=== PATIENT | male | born 1945 | race Caucasian/White ===

== ENCOUNTER 2022-11-18 23:03 | Emergency (ER) | payer OTHER ==
--- OUTSIDE RECORDS SUMMARY | 2022-11-18 23:08 | XMS REPORT | Continuity of Care Document ---
:1945 Author Organization [facility] t Address [address] [place] [address] [place] [id number] Care Team Providers Name Role Phone Asked, No Pcp Primary Care Physician Unavailable Tony_Lary Attending Clinician Unavailable Alirio Ivy MD Attending Clinician IAN ELLIOTT Attending Clinician Unavailable Uli Jimenez Attending Clinician [phone] NITHIN AYALA Attending Clinician Unavailable Tony_Lary Admitting Clinician Unavailable Payers Payer Name Policy Type Policy Number Effective Date Expiration Date S omi MEDICARE B-[place]: [id number] 2012 [employer] 00:00:00 [employer] LIFE [id number] INS[employer]ANCE [employer] (MEDICARE SUPPLEMENT) [employer] (POS) [id number] Problems Condition Condition Condition Status Onset Resolution Last Treating Co mments Source Name Details Category Date Date Treatment Clinician Date Carcinoma 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[facility] of of 8-22 [facility] prostate Prostate 00:00: Urolog y 00 Lower Lower Problem Active [facility] urinary Urinary 6-29 [facility] tract Tract 00:00: Urology symptoms Symptoms 00 due to Due to benign Benign prostatic Prostatic hypertroph Hypertroph y y Anemia Anemia Problem Active [facility] 6-13 [facility] 00:00: Urology 00 Raised Raised Problem Active [facility] prostate Prostate 6-12 [facility] specific Specific 00:00: Urolog y antigen Antigen 00 Hypertensi Hypertensi Problem Active [facility] [place] [facility] ve 3-10 [facility] disorder Disorder 00:00: Urolog y 00 Irregular Irregular Problem Active [facility] heart beat Heart Beat 3-10 [facility] 00:00: Urology 00 Backache Backache Problem Active [place] on 3-10 [facility] 00:00: Urology 00 Radicular Radicular Problem Active [facility] pain Pain 3-10 [facility] 00:00: Urology 00 Allergies, Adverse Reactions, Alerts This patient has no known allergies or adverse reactions. Family History Family Member Diagnosis Comments Start Date Stop Date Source Natural mother Hypertension [facility] Natural father Heart attack [facility] Natural father Heart failure [facility] Natural father Hypertension [facility] Social History Social Habit Start Date Stop Date Quantity Comments Source History of tobacco Current smoker [facility] Cigarettes smoked 2022-04-02 2022-04-[address] current (pack per 00:00:00 00:00:00 Hospita l day) - Reported Tobacco use and 2022-04-02 2022-04-02 Former smokeless [facility] exposure 00:00:00 00:00:00 tobacco user Hospital Alcohol intake 2022-04-02 2022-04-02 Lifetime [facility] 00:00:00 00:00:00 non-drinker Hospital (finding) History of Social 2022-04-02 2022-04-[address] function 00:00:00 00:00:00 Hospital Sex Ass[birth year] At [birth year] [facility] 00:[facility]00 Hospital Smoking Status Start Date Stop Date Source Ex-smoker 2022-04-02 00:00:00 2022-04-02 00:00:00 [facility] Medications Ordered Filled Start Stop Current Ordering Indication Dosage Frequency Signature Comments Components Source Medication Medication Date Date Medication? Clinician (SIG) Name Name ceftriaxone ceftriaxone 2021-06 No ceftriaxon [place] 1 gram 1 gram 2-09 e 1 gram [facility] solution solution 10:01: solution U rology for for 23 for injectionTa injectionTa injectionT ke 1 g by ke 1 g by thalia 1 g by injection injection injection route. route. route. Lupron Lupron 2021-06 No Lupron [place] 45 mg [place] 45 mg 1-16 [place] 45 [facility] (6 Month) (6 Month) 12:23: mg (6 Ur ology intramuscul intramuscul 36 Month) ar syringe ar syringe intramuscu kitInject 1 kitInject 1 lar kit by kit by syringe intramuscul intramuscul kitInject ar route. ar route. 1 kit by intramuscu lar route. aspirin 81 2021-06 Yes Q24H daily. Metho di mg chewable 0-24 st tablet 10:44: Hospita 59 l carvediloL 2021-06 Yes carvedilol M ethodi (COREG) 0-[address] 3.125 MG 10:44: tablet [facility]osp[facility] tablet 59 TAKE 1 l TABLET BY MOUTH TWICE A DAY WITH MEALS gabapentin 2021-06 Yes gabapentin [facility] (NEURONTIN) 0-[address] 100 mg 10:44: capsule Hospita capsule 59 TAKE 1 l CAPSULE BY MOUTH THREE TIMES A DAY lisinopriL- 2021-06 Yes lisinopril [facility] hydrochloro 0-[address] thiazide 10:44: mg-hydroch [facility] [place] (PRINZIDE) 59 lorothiazi l 20-12.5 mg de 12.5 mg per tablet tablet TAKE 1 TABLET BY MOUTH EVERY DAY atorvastati atorvastati No atorvastat [place] n 20 mg n 20 mg 3-10 in 20 mg [facility] tablet TAKE tablet TAKE 00:00: tablet Urology 1 TABLET BY 1 TABLET BY 00 TAKE 1 MOUTH EVERY MOUTH EVERY TABLET BY DAY DAY MOUTH EVERY DAY atorvastati atorvastati No atorvastat [place] n 20 mg n 20 mg 3-10 in 20 mg [facility] tablet TAKE tablet TAKE 00:00: tablet Urology 1 TABLET BY 1 TABLET BY 00 TAKE 1 MOUTH EVERY MOUTH EVERY TABLET BY DAY DAY MOUTH EVERY DAY atorvastati Yes 20mg 1 tablet [facility]odi n (LIPITOR) 3-10 ([address] 20 mg 00:00: total). Hospita tablet 00 l atorvastati atorvastati No atorvastat [facility] n 20 mg n 20 mg in 20 mg [facility] tablet TAKE tablet TAKE tablet Urology 1 TABLET BY 1 TABLET BY TAKE 1 MOUTH EVERY MOUTH EVERY TABLET BY DAY DAY MOUTH EVERY DAY Baby Baby No 1 Q1D Baby [facility] Aspirin 81 Aspirin 81 Aspirin 81 [facility] mg chewable mg chewable mg U rology tablet Chew tablet Chew chewable 1 tablet 1 tablet tablet every day every day Chew 1 by oral by oral tablet route. route. every day by oral route. carvedilol carvedilol No carvedilol [facility] 3.125 mg 3.125 mg 3.125 mg Met ro tablet TAKE tablet TAKE tablet Urology 1 TABLET BY 1 TABLET BY TAKE 1 MOUTH TWICE MOUTH TWICE TABLET BY A DAY WITH A DAY WITH MOUTH MEALS MEALS TWICE A DAY WITH MEALS ciprofloxac ciprofloxac No ciprofloxa [facility] in 500 mg in 500 mg adam 500 mg [facility] tablet TAKE tablet TAKE tablet Urology 1 TABLET BY 1 TABLET BY TAKE 1 MOUTH EVERY MOUTH EVERY TABLET BY 12 HOURS 12 HOURS MOUTH FOR 7 DAYS FOR 7 DAYS EVERY 12 HOURS FOR 7 DAYS gabapentin gabapentin No gabapentin [facility] 100 mg 100 mg 100 mg [facility] capsule capsule capsule Urolog y Take 1 Take 1 Take 1 capsule 3 capsule 3 capsule 3 times a day times a day times a by oral by oral day by route. route. oral route. lisinopril lisinopril No lisinopril [facility] 20 20 20 [facility] mg-hydrochl mg-hydrochl mg-hydroch Urology orothiazide orothiazide lorothiazi 12.5 mg 12.5 mg de 12.5 mg tablet tablet tablet sulfamethox sulfamethox No sulfametho [facility] azole 800 azole 800 xazole 800 [facility] mg-trimetho mg-trimetho mg-trimeth Urology prim 160 mg prim 160 mg oprim 160 tablet Take tablet Take mg tablet 1 tablet 1 tablet Take 1 every 12 every 12 tablet hours by hours by every 12 oral route oral route hours by for 3 days. for 3 days. oral route for 3 days. atorvastati atorvastati No atorvastat [facility] n 20 mg n 20 mg in 20 mg [facility] tablet TAKE tablet TAKE tablet Urology 1 TABLET BY 1 TABLET BY TAKE 1 MOUTH EVERY MOUTH EVERY TABLET BY DAY DAY MOUTH EVERY DAY Baby Baby No 1 Q1D Baby [facility] Aspirin 81 Aspirin 81 Aspirin 81 [facility] mg chewable mg chewable mg U rology tablet Chew tablet Chew chewable 1 tablet 1 tablet tablet every day every day Chew 1 by oral by oral tablet route. route. every day by oral route. carvedilol carvedilol No carvedilol [facility] 3.125 mg 3.125 mg 3.125 mg Met ro tablet TAKE tablet TAKE tablet Urology 1 TABLET BY 1 TABLET BY TAKE 1 MOUTH TWICE MOUTH TWICE TABLET BY A DAY WITH A DAY WITH MOUTH MEALS MEALS TWICE A DAY WITH MEALS ciprofloxac ciprofloxac No ciprofloxa [facility] in 500 mg in 500 mg adam 500 mg [facility] tablet TAKE tablet TAKE tablet Urology 1 TABLET BY 1 TABLET BY TAKE 1 MOUTH EVERY MOUTH EVERY TABLET BY 12 HOURS 12 HOURS MOUTH FOR 7 DAYS FOR 7 DAYS EVERY 12 HOURS FOR 7 DAYS gabapentin gabapentin No gabapentin [facility] 100 mg 100 mg 100 mg [facility] capsule capsule capsule Urolog y TAKE 1 TAKE 1 TAKE 1 CAPSULE BY CAPSULE BY CAPSULE BY MOUTH THREE MOUTH THREE MOUTH TIMES A DAY TIMES A DAY THREE TIMES A DAY lisinopril lisinopril No lisinopril [facility] 20 20 20 [facility] mg-hydrochl mg-hydrochl mg-hydroch Urology orothiazide orothiazide lorothiazi 12.5 mg 12.5 mg de 12.5 mg tablet TAKE tablet TAKE tablet 1 TABLET BY 1 TABLET BY TAKE 1 MOUTH EVERY MOUTH EVERY TABLET BY DAY DAY MOUTH EVERY DAY Lupron Lupron No 1kit(s) Lupron [place] 45 mg [place] 45 mg [place] 45 [facility] (6 Month) (6 Month) mg (6 Urol ogy intramuscul intramuscul Month) ar syringe ar syringe intramuscu kit Inject kit Inject lar 1 kit by 1 kit by syringe intramuscul intramuscul kit Inject ar route. ar route. 1 kit by intramuscu lar route. sulfamethox sulfamethox No sulfametho [facility] azole 800 azole 800 xazole 800 [facility] mg-trimetho mg-trimetho mg-trimeth Urology prim 160 mg prim 160 mg oprim 160 tablet TAKE tablet TAKE mg tablet 1 TABLET BY 1 TABLET BY TAKE 1 MOUTH EVERY MOUTH EVERY TABLET BY 12 HOURS 12 HOURS MOUTH FOR 3 DAYS FOR 3 DAYS EVERY 12 HOURS FOR 3 DAYS atorvastati atorvastati No atorvastat [facility] n 20 mg n 20 mg in 20 mg [facility] tablet TAKE tablet TAKE tablet Urology 1 TABLET BY 1 TABLET BY TAKE 1 MOUTH EVERY MOUTH EVERY TABLET BY DAY DAY MOUTH EVERY DAY Baby Baby No 1 Q1D Baby [facility] Aspirin 81 Aspirin 81 Aspirin 81 [facility] mg chewable mg chewable mg U rology tablet Chew tablet Chew chewable 1 tablet 1 tablet tablet every day every day Chew 1 by oral by oral tablet route. route. every day by oral route. carvedilol carvedilol No carvedilol [facility] 3.125 mg 3.125 mg 3.125 mg [facility] ro tablet TAKE tablet TAKE tablet Urology 1 TABLET BY 1 TABLET BY TAKE 1 MOUTH TWICE MOUTH TWICE TABLET BY A DAY WITH A DAY WITH MOUTH MEALS MEALS TWICE A DAY WITH MEALS Cipro 500 Cipro 500 No 1 BID Cipro 500 [facility] mg tablet mg tablet mg tablet [facility] Take 1 Take 1 Take 1 Urology tablet tablet tablet twice a day twice a day twice a by oral by oral day by route for 3 route for 3 oral route days. days. for 3 days. gabapentin gabapentin No gabapentin [facility] 100 mg 100 mg 100 mg [facility] capsule capsule capsule Urolog y TAKE 1 TAKE 1 TAKE 1 CAPSULE BY CAPSULE BY CAPSULE BY MOUTH THREE MOUTH THREE MOUTH TIMES A DAY TIMES A DAY THREE TIMES A DAY lisinopril lisinopril No lisinopril [facility] 20 20 20 [facility] mg-hydrochl mg-hydrochl mg-hydroch Urology orothiazide orothiazide lorothiazi 12.5 mg 12.5 mg de 12.5 mg tablet TAKE tablet TAKE tablet 1 TABLET BY 1 TABLET BY TAKE 1 MOUTH EVERY MOUTH EVERY TABLET BY DAY DAY MOUTH EVERY DAY Lupron Lupron No 1kit(s) Lupron [place] 45 mg [place] 45 mg [place] 45 [facility] (6 Month) (6 Month) mg (6 Urol ogy intramuscul intramuscul Month) ar syringe ar syringe intramuscu kit Inject kit Inject lar 1 kit by 1 kit by syringe intramuscul intramuscul kit Inject ar route. ar route. 1 kit by intramuscu lar route. sulfamethox sulfamethox No sulfametho [facility] azole 800 azole 800 xazole 800 [facility] mg-trimetho mg-trimetho mg-trimeth Urology prim 160 mg prim 160 mg oprim 160 tablet TAKE tablet TAKE mg tablet 1 TABLET BY 1 TABLET BY TAKE 1 MOUTH EVERY MOUTH EVERY TABLET BY 12 HOURS 12 HOURS MOUTH FOR 3 DAYS FOR 3 DAYS EVERY 12 HOURS FOR 3 DAYS atorvastati atorvastati No atorvastat [facility] n 20 mg n 20 mg in 20 mg [facility] tablet TAKE tablet TAKE tablet Urology 1 TABLET BY 1 TABLET BY TAKE 1 MOUTH EVERY MOUTH EVERY TABLET BY DAY DAY MOUTH EVERY DAY Baby Baby No 1 Q1D Baby [facility] Aspirin 81 Aspirin 81 Aspirin 81 [facility] mg chewable mg chewable mg U rology tablet Chew tablet Chew chewable 1 tablet 1 tablet tablet every day every day Chew 1 by oral by oral tablet route. route. every day by oral route. carvedilol carvedilol No carvedilol [facility] 3.125 mg 3.125 mg 3.125 mg [facility] tablet TAKE tablet TAKE tablet Urology 1 TABLET BY 1 TABLET BY TAKE 1 MOUTH TWICE MOUTH TWICE TABLET BY A DAY WITH A DAY WITH MOUTH MEALS MEALS TWICE A DAY WITH MEALS ceftriaxone ceftriaxone No 1g ceftriaxon [facility] 1 gram 1 gram e 1 gram [facility] solution solution solution Uro logy for for for injection injection injection Take 1 g by Take 1 g by Take 1 g injection injection by route. route. injection INJECTION INJECTION route. GIVEN PRIOR GIVEN PRIOR INJECTION TO TO GIVEN PROCEDURE PROCEDURE PRIOR TO STARTNG STARTNG PROCEDURE STARTNG ciprofloxac ciprofloxac No ciprofloxa [facility] in 500 mg in 500 mg adam 500 mg [facility] tablet TAKE tablet TAKE tablet Urology 1 TABLET BY 1 TABLET BY TAKE 1 MOUTH TWICE MOUTH TWICE TABLET BY A DAY FOR 3 A DAY FOR 3 MOUTH DAYS DAYS TWICE A DAY FOR 3 DAYS diazepam 5 diazepam 5 No diazepam 5 [facility] mg tablet mg tablet mg tablet [facility] TAKE 3 TAKE 3 TAKE 3 Urology TABLETS TABLETS TABLETS NEEDED BY NEEDED BY NEEDED BY ORAL ROUTE. ORAL ROUTE. ORAL ROUTE. gabapentin gabapentin No gabapentin [facility] 100 mg 100 mg 100 mg [facility] capsule capsule capsule Urolog y TAKE 1 TAKE 1 TAKE 1 CAPSULE BY CAPSULE BY CAPSULE BY MOUTH THREE MOUTH THREE MOUTH TIMES A DAY TIMES A DAY THREE TIMES A DAY lisinopril lisinopril No lisinopril [facility] 20 20 20 [facility] mg-hydrochl mg-hydrochl mg-hydroch Urology orothiazide orothiazide lorothiazi 12.5 mg 12.5 mg de 12.5 mg tablet TAKE tablet TAKE tablet 1 TABLET BY 1 TABLET BY TAKE 1 MOUTH EVERY MOUTH EVERY TABLET BY DAY DAY MOUTH EVERY DAY Lupron Lupron No 1kit(s) Lupron [place] 45 mg [place] 45 mg [place] 45 [facility] (6 Month) (6 Month) mg (6 Urol ogy intramuscul intramuscul Month) ar syringe ar syringe intramuscu kit Inject kit Inject lar 1 kit by 1 kit by syringe intramuscul intramuscul kit Inject ar route. ar route. 1 kit by intramuscu lar route. sulfamethox sulfamethox No sulfametho [facility] azole 800 azole 800 xazole 800 [facility] mg-trimetho mg-trimetho mg-trimeth Urology prim 160 mg prim 160 mg oprim 160 tablet TAKE tablet TAKE mg tablet 1 TABLET BY 1 TABLET BY TAKE 1 MOUTH EVERY MOUTH EVERY TABLET BY 12 HOURS 12 HOURS MOUTH FOR 3 DAYS FOR 3 DAYS EVERY 12 HOURS FOR 3 DAYS atorvastati atorvastati No atorvastat [facility] n 20 mg n 20 mg in 20 mg [facility] tablet TAKE tablet TAKE tablet Urology 1 TABLET BY 1 TABLET BY TAKE 1 MOUTH EVERY MOUTH EVERY TABLET BY DAY DAY MOUTH EVERY DAY Baby Baby No 1 Q1D Baby [facility] Aspirin 81 Aspirin 81 Aspirin 81 [facility] mg chewable mg chewable mg U rology tablet Chew tablet Chew chewable 1 tablet 1 tablet tablet every day every day Chew 1 by oral by oral tablet route. route. every day by oral route. carvedilol carvedilol No carvedilol [facility] 3.125 mg 3.125 mg 3.125 mg [facility] ro tablet TAKE tablet TAKE tablet Urology 1 TABLET BY 1 TABLET BY TAKE 1 MOUTH TWICE MOUTH TWICE TABLET BY A DAY WITH A DAY WITH MOUTH MEALS MEALS TWICE A DAY WITH MEALS gabapentin gabapentin No gabapentin [facility] 100 mg 100 mg 100 mg [facility] capsule capsule capsule Urolog y TAKE 1 TAKE 1 TAKE 1 CAPSULE BY CAPSULE BY CAPSULE BY MOUTH THREE MOUTH THREE MOUTH TIMES A DAY TIMES A DAY THREE TIMES A DAY lisinopril lisinopril No lisinopril [facility] 20 20 20 [facility] mg-hydrochl mg-hydrochl mg-hydroch Urology orothiazide orothiazide lorothiazi 12.5 mg 12.5 mg de 12.5 mg tablet TAKE tablet TAKE tablet 1 TABLET BY 1 TABLET BY TAKE 1 MOUTH EVERY MOUTH EVERY TABLET BY DAY DAY MOUTH EVERY DAY Lupron Lupron No 1kit(s) Lupron [place] 45 mg [place] 45 mg [place] 45 [facility] (6 Month) (6 Month) mg (6 Urol ogy intramuscul intramuscul Month) ar syringe ar syringe intramuscu kit Inject kit Inject lar 1 kit by 1 kit by syringe intramuscul intramuscul kit Inject ar route. ar route. 1 kit by intramuscu lar route. tamsulosin tamsulosin No 1capsul Q1D tamsulosin [facility] 0.4 mg 0.4 mg e(s) 0.4 mg [facility] capsule capsule capsule Urolog y Take 1 Take 1 Take 1 capsule capsule capsule every day every day every day by oral by oral by oral route. Take route. Take route. one capsule one capsule Take one 30 minutes 30 minutes capsule 30 after after minutes dinner, dinner, after each each dinner, night.Stop night.Stop each taking taking night.Stop medication medication taking and notify and notify medication MD and notify immediately immediately MD if you if you immediatel experience experience y if you any any experience new/worseni new/worseni any ng issues, ng issues, new/worsen specificall specificall ing y y issues, headaches, headaches, specifical dizziness, dizziness, ly lightheaded lightheaded headaches, ness, ness, dizziness, visual visual lightheade changes, changes, dness, nausea, or nausea, or visual unsteadines unsteadines changes, s. -- S. s. -- S. nausea, or MD Krista Velasco MD unsteadine ss. -- S. MD Krista atorvastati atorvastati No atorvastat [facility] n 20 mg n 20 mg in 20 mg [facility] tablet TAKE tablet TAKE tablet Urology 1 TABLET BY 1 TABLET BY TAKE 1 MOUTH EVERY MOUTH EVERY TABLET BY DAY DAY MOUTH EVERY DAY Baby Baby No 1 Q1D Baby [facility] Aspirin 81 Aspirin 81 Aspirin 81 [facility] mg chewable mg chewable mg U rology tablet Chew tablet Chew chewable 1 tablet 1 tablet tablet every day every day Chew 1 by oral by oral tablet route. route. every day by oral route. carvedilol carvedilol No carvedilol [facility] 3.125 mg 3.125 mg 3.125 mg [facility] ro tablet TAKE tablet TAKE tablet Urology 1 TABLET BY 1 TABLET BY TAKE 1 MOUTH TWICE MOUTH TWICE TABLET BY A DAY WITH A DAY WITH MOUTH MEALS MEALS TWICE A DAY WITH MEALS gabapentin gabapentin No gabapentin [facility] 100 mg 100 mg 100 mg [facility] capsule capsule capsule Urolog y TAKE 1 TAKE 1 TAKE 1 CAPSULE BY CAPSULE BY CAPSULE BY MOUTH THREE MOUTH THREE MOUTH TIMES A DAY TIMES A DAY THREE TIMES A DAY lisinopril lisinopril No lisinopril [facility] 20 20 20 [facility] mg-hydrochl mg-hydrochl mg-hydroch Urology orothiazide orothiazide [place]iazi 12.5 mg 12.5 mg de 12.5 mg tablet TAKE tablet TAKE tablet 1 TABLET BY 1 TABLET BY TAKE 1 MOUTH EVERY MOUTH EVERY TABLET BY DAY DAY MOUTH EVERY DAY Lupron Lupron No 1kit(s) Lupron [place] 45 mg [place] 45 mg [place] 45 [facility] (6 Month) (6 Month) mg (6 Urol ogy intramuscul intramuscul Month) ar syringe ar syringe intramuscu kit Inject kit Inject lar 1 kit by 1 kit by syringe intramuscul intramuscul kit Inject ar route. ar route. 1 kit by intramuscu lar route. tamsulosin tamsulosin No 1capsul Q1D tamsulosin [facility] 0.4 mg 0.4 mg e(s) 0.4 mg [facility] capsule capsule capsule Urolog y Take 1 Take 1 Take 1 capsule capsule capsule every day every day every day by oral by oral by oral route. Take route. Take route. one capsule one capsule Take one 30 minutes 30 minutes capsule 30 after after minutes dinner, dinner, after each each dinner, night.Stop night.Stop each taking taking night.Stop medication medication taking and notify and notify medication MD and notify immediately immediately MD if you if you immediatel experience experience y if you any any experience new/worseni new/worseni any ng issues, ng issues, new/worsen specificall specificall ing y y issues, headaches, headaches, specifical dizziness, dizziness, ly lightheaded lightheaded headaches, ness, ness, dizziness, visual visual lightheade changes, changes, dness, nausea, or nausea, or visual unsteadines unsteadines changes, s. -- S. s. -- S. nausea, or MD Krista Velasco MD unsteadine ss. -- S. MD Krista atorvastati atorvastati No atorvastat [facility] n 20 mg n 20 mg in 20 mg [facility] tablet TAKE tablet TAKE tablet Urology 1 TABLET BY 1 TABLET BY TAKE 1 MOUTH EVERY MOUTH EVERY TABLET BY DAY DAY MOUTH EVERY DAY Baby Baby No 1 Q1D Baby [facility] Aspirin 81 Aspirin 81 Aspirin 81 [facility] mg chewable mg chewable mg U rology tablet Chew tablet Chew chewable 1 tablet 1 tablet tablet every day every day Chew 1 by oral by oral tablet route. route. every day by oral route. carvedilol carvedilol No carvedilol [facility] 3.125 mg 3.125 mg 3.125 mg [facility] tablet TAKE tablet TAKE tablet Urology 1 TABLET BY 1 TABLET BY TAKE 1 MOUTH TWICE MOUTH TWICE TABLET BY A DAY WITH A DAY WITH MOUTH MEALS MEALS TWICE A DAY WITH MEALS gabapentin gabapentin No gabapentin [facility] 100 mg 100 mg 100 mg [facility] capsule capsule capsule Urolog y TAKE 1 TAKE 1 TAKE 1 CAPSULE BY CAPSULE BY CAPSULE BY MOUTH THREE MOUTH THREE MOUTH TIMES A DAY TIMES A DAY THREE TIMES A DAY lisinopril lisinopril No lisinopril [facility] 20 20 20 [facility] mg-hydrochl mg-hydrochl mg-hydroch Urology orothiazide orothiazide lorothiazi 12.5 mg 12.5 mg de 12.5 mg tablet TAKE tablet TAKE tablet 1 TABLET BY 1 TABLET BY TAKE 1 MOUTH EVERY MOUTH EVERY TABLET BY DAY DAY MOUTH EVERY DAY Lupron Lupron No 1kit(s) Lupron [place] 45 mg [place] 45 mg [place] 45 [facility] (6 Month) (6 Month) mg (6 Urol ogy intramuscul intramuscul Month) ar syringe ar syringe intramuscu kit Inject kit Inject lar 1 kit by 1 kit by syringe intramuscul intramuscul kit Inject ar route. ar route. 1 kit by intramuscu lar route. tamsulosin tamsulosin No 1capsul Q1D tamsulosin [facility] 0.4 mg 0.4 mg e(s) 0.4 mg [facility] capsule capsule capsule Urolog y Take 1 Take 1 Take 1 capsule capsule capsule every day every day every day by oral by oral by oral route. Take route. Take route. one capsule one capsule Take one 30 minutes 30 minutes capsule 30 after after minutes dinner, dinner, after each each dinner, night.Stop night.Stop each taking taking night.Stop medication medication taking and notify and notify medication MD and notify immediately immediately MD if you if you immediatel experience experience y if you any any experience new/worseni new/worseni any ng issues, ng issues, new/worsen specificall specificall ing y y issues, headaches, headaches, specifical dizziness, dizziness, ly lightheaded lightheaded headaches, ness, ness, dizziness, visual visual lightheade changes, changes, dness, nausea, or nausea, or visual unsteadines unsteadines changes, s. -- S. s. -- S. nausea, or MD Krista Velasco MD unsteadine ss. -- S. MD Krista atorvastati atorvastati No atorvastat [facility] n 20 mg n 20 mg in 20 mg [facility] tablet TAKE tablet TAKE tablet Urology 1 TABLET BY 1 TABLET BY TAKE 1 MOUTH EVERY MOUTH EVERY TABLET BY DAY DAY MOUTH EVERY DAY Baby Baby No 1 Q1D [facility] Aspirin 81 Aspirin 81 Aspirin 81 [facility] mg chewable mg chewable mg U rology tablet Chew tablet Chew chewable 1 tablet 1 tablet tablet every day every day Chew 1 by oral by oral tablet route. route. every day by oral route. carvedilol carvedilol No carvedilol [facility] 3.125 mg 3.125 mg 3.125 mg [facility] tablet TAKE tablet TAKE tablet Urology 1 TABLET BY 1 TABLET BY TAKE 1 MOUTH TWICE MOUTH TWICE TABLET BY A DAY WITH A DAY WITH MOUTH MEALS MEALS TWICE A DAY WITH MEALS gabapentin gabapentin No gabapentin [facility] 100 mg 100 mg 100 mg [facility] capsule capsule capsule Urolog y TAKE 1 TAKE 1 TAKE 1 CAPSULE BY CAPSULE BY CAPSULE BY MOUTH THREE MOUTH THREE MOUTH TIMES A DAY TIMES A DAY THREE TIMES A DAY lisinopril lisinopril No lisinopril [facility] 20 20 20 [facility] mg-hydrochl mg-hydrochl mg-hydroch Urology orothiazide orothiazide l[place]iazi 12.5 mg 12.5 mg de 12.5 mg tablet TAKE tablet TAKE tablet 1 TABLET BY 1 TABLET BY TAKE 1 MOUTH EVERY MOUTH EVERY TABLET BY DAY DAY MOUTH EVERY DAY Lupron Lupron No 1kit(s) Lupron [place] 45 mg [place] 45 mg [place] 45 [facility] (6 Month) (6 Month) mg (6 Urol ogy intramuscul intramuscul Month) ar syringe ar syringe intramuscu kit Inject kit Inject lar 1 kit by 1 kit by syringe intramuscul intramuscul kit Inject ar route. ar route. 1 kit by intramuscu lar route. tamsulosin tamsulosin No 1capsul Q1D tamsulosin [facility] 0.4 mg 0.4 mg e(s) 0.4 mg [facility] capsule capsule capsule Urolog y Take 1 Take 1 Take 1 capsule capsule capsule every day every day every day by oral by oral by oral route. Take route. Take route. one capsule one capsule Take one 30 minutes 30 minutes capsule 30 after after minutes dinner, dinner, after each each dinner, night.Stop night.Stop each taking taking night.Stop medication medication taking and notify and notify medication MD MD and notify immediately immediately MD if you if you immediatel experience experience y if you any any experience new/worseni new/worseni any ng issues, ng issues, new/worsen specificall specificall ing y y issues, headaches, headaches, specifical dizziness, dizziness, ly lightheaded lightheaded headaches, ness, ness, dizziness, visual visual lightheade changes, changes, dness, nausea, or nausea, or visual unsteadines unsteadines changes, s. -- S. s. -- S. nausea, or MD Krista Velasco MD unsteadine ss. -- S. MD Krista atorvastati atorvastati No atorvastat [facility] n 20 mg n 20 mg in 20 mg [facility] tablet TAKE tablet TAKE tablet U[facility] 1 TABLET BY 1 TABLET BY TAKE 1 MOUTH EVERY MOUTH EVERY TABLET BY DAY DAY MOUTH EVERY DAY Baby Baby No 1 Q1D Baby [facility] Aspirin 81 Aspirin 81 Aspirin 81 [facility] mg chewable mg chewable mg U rology tablet Chew tablet Chew chewable 1 tablet 1 tablet tablet every day every day Chew 1 by oral by oral tablet route. route. every day by oral route. carvedilol carvedilol No carvedilol [facility] 3.125 mg 3.125 mg 3.125 mg Met ro tablet TAKE tablet TAKE tablet Urology 1 TABLET BY 1 TABLET BY TAKE 1 MOUTH TWICE MOUTH TWICE TABLET BY A DAY WITH A DAY WITH MOUTH MEALS MEALS TWICE A DAY WITH MEALS gabapentin gabapentin No gabapentin [facility] 100 mg 100 mg 100 mg [facility] capsule capsule capsule Urolog y TAKE 1 TAKE 1 TAKE 1 CAPSULE BY CAPSULE BY CAPSULE BY MOUTH THREE MOUTH THREE MOUTH TIMES A DAY TIMES A DAY THREE TIMES A DAY lisinopril lisinopril No lisinopril [facility] 20 20 20 [facility] mg-hydrochl mg-hydrochl mg-hydroch Urology orothiazide orothiazide [facility] 12.5 mg 12.5 mg de 12.5 mg tablet TAKE tablet TAKE tablet 1 TABLET BY 1 TABLET BY TAKE 1 MOUTH EVERY MOUTH EVERY TABLET BY DAY DAY MOUTH EVERY DAY Lupron Lupron No 1kit(s) Lupron [place] 45 mg [facility] 45 mg [facility] 45 [facility] (6 Month) (6 Month) mg (6 Urol ogy intramuscul intramuscul Month) ar syringe ar syringe intramuscu kit Inject kit Inject lar 1 kit by 1 kit by syringe intramuscul intramuscul kit Inject ar route. ar route. 1 kit by intramuscu lar route. tamsulosin tamsulosin No 1capsul Q1D tamsulosin [facility] 0.4 mg 0.4 mg e(s) 0.4 mg [facility] capsule capsule capsule Urolog y Take 1 Take 1 Take 1 capsule capsule capsule every day every day every day by oral by oral by oral route. Take route. Take route. one capsule one capsule Take one 30 minutes 30 minutes capsule 30 after after minutes dinner, dinner, after each each dinner, night.Stop night.Stop each taking taking night.Stop medication medication taking and notify and notify medication MD and notify immediately immediately MD if you if you immediatel experience experience y if you any any experience new/worseni new/worseni any ng issues, ng issues, new/worsen specificall specificall ing y y issues, headaches, headaches, specifical dizziness, dizziness, ly lightheaded lightheaded headaches, ness, ness, dizziness, visual visual lightheade changes, changes, dness, nausea, or nausea, or visual unsteadines unsteadines changes, s. -- S. s. -- S. nausea, or MD Krista Velasco MD unsteadine ss. -- S. MD Krista atorvastati atorvastati No atorvastat [facility] n 20 mg n 20 mg in 20 mg [facility] tablet TAKE tablet TAKE tablet Urology 1 TABLET BY 1 TABLET BY TAKE 1 MOUTH EVERY MOUTH EVERY TABLET BY DAY DAY MOUTH EVERY DAY Baby Baby No 1 Q1D Baby [facility] Aspirin 81 Aspirin 81 Aspirin 81 [facility] mg chewable mg chewable mg U rology tablet Chew tablet Chew chewable 1 tablet 1 tablet tablet every day every day Chew 1 by oral by oral tablet route. route. every day by oral route. carvedilol carvedilol No carvedilol [facility] 3.125 mg 3.125 mg 3.125 mg Met ro tablet TAKE tablet TAKE tablet Urology 1 TABLET BY 1 TABLET BY TAKE 1 MOUTH TWICE MOUTH TWICE TABLET BY A DAY WITH A DAY WITH MOUTH MEALS MEALS TWICE A DAY WITH MEALS gabapentin gabapentin No gabapentin [facility] 100 mg 100 mg 100 mg [facility] capsule capsule capsule Urolog y TAKE 1 TAKE 1 TAKE 1 CAPSULE BY CAPSULE BY CAPSULE BY MOUTH THREE MOUTH THREE MOUTH TIMES A DAY TIMES A DAY THREE TIMES A DAY lisinopril lisinopril No lisinopril [facility] 20 20 20 [facility] mg-hydrochl mg-hydrochl mg-hydroch Urology orothiazide orothiazide [facility] 12.5 mg 12.5 mg de 12.5 mg tablet TAKE tablet TAKE tablet 1 TABLET BY 1 TABLET BY TAKE 1 MOUTH EVERY MOUTH EVERY TABLET BY DAY DAY MOUTH EVERY DAY Lupron Lupron No 1kit(s) Lupron [place] 45 mg [place] 45 mg [place] 45 [facility] (6 Month) (6 Month) mg (6 Urol ogy intramuscul intramuscul Month) ar syringe ar syringe intramuscu kit Inject kit Inject lar 1 kit by 1 kit by syringe intramuscul intramuscul kit Inject ar route. ar route. 1 kit by intramuscu lar route. tamsulosin tamsulosin No 1capsul Q1D tamsulosin [facility] 0.4 mg 0.4 mg e(s) 0.4 mg [facility] capsule capsule capsule Urolog y Take 1 Take 1 Take 1 capsule capsule capsule every day every day every day by oral by oral by oral route. Take route. Take route. one capsule one capsule Take one 30 minutes 30 minutes capsule 30 after after minutes dinner, dinner, after each each dinner, night.Stop night.Stop each taking taking night.Stop medication medication taking and notify and notify medication MD and notify immediately immediately MD if you if you immediatel experience experience y if you any any experience new/worseni new/worseni any ng issues, ng issues, new/worsen specificall specificall ing y y issues, headaches, headaches, specifical dizziness, dizziness, ly lightheaded lightheaded headaches, ness, ness, dizziness, visual visual lightheade changes, changes, dness, nausea, or nausea, or visual unsteadines unsteadines changes, s. -- S. s. -- S. nausea, or MD Krista Velasco MD unsteadine ss. -- S. MD Krista atorvastati atorvastati No atorvastat [facility] n 20 mg n 20 mg in 20 mg [facility] tablet TAKE tablet TAKE tablet Urology 1 TABLET BY 1 TABLET BY TAKE 1 MOUTH EVERY MOUTH EVERY TABLET BY DAY DAY MOUTH EVERY DAY Baby Baby No 1 Q1D Baby [facility] Aspirin 81 Aspirin 81 Aspirin 81 [facility] mg chewable mg chewable mg U rology tablet Chew tablet Chew chewable 1 tablet 1 tablet tablet every day every day Chew 1 by oral by oral tablet route. route. every day by oral route. carvedilol carvedilol No carvedilol [facility] 3.125 mg 3.125 mg 3.125 mg Met ro tablet TAKE tablet TAKE tablet Urology 1 TABLET BY 1 TABLET BY TAKE 1 MOUTH TWICE MOUTH TWICE TABLET BY A DAY WITH A DAY WITH MOUTH MEALS MEALS TWICE A DAY WITH MEALS eplerenone eplerenone No eplerenone [facility] 25 mg 25 mg 25 mg [facility] tablet tablet tablet Urology gabapentin gabapentin No gabapentin [facility] 100 mg 100 mg 100 mg [facility] capsule capsule capsule Urolog y TAKE 1 TAKE 1 TAKE 1 CAPSULE BY CAPSULE BY CAPSULE BY MOUTH THREE MOUTH THREE MOUTH TIMES A DAY TIMES A DAY THREE TIMES A DAY lisinopril lisinopril No lisinopril [facility] 20 20 20 [facility] mg-hydrochl mg-hydrochl mg-hydroch Urology orothiazide orothiazide [facility] 12.5 mg 12.5 mg de 12.5 mg tablet TAKE tablet TAKE tablet 1 TABLET BY 1 TABLET BY TAKE 1 MOUTH EVERY MOUTH EVERY TABLET BY DAY DAY MOUTH EVERY DAY Lupron Lupron No 1kit(s) Lupron [place] 45 mg [place] 45 mg [place] 45 [facility] (6 Month) (6 Month) mg (6 Urol ogy intramuscul intramuscul Month) ar syringe ar syringe intramuscu kit Inject kit Inject lar 1 kit by 1 kit by syringe intramuscul intramuscul kit Inject ar route. ar route. 1 kit by intramuscu lar route. tamsulosin tamsulosin No 1capsul Q1D tamsulosin [facility] 0.4 mg 0.4 mg e(s) 0.4 mg [facility] capsule capsule capsule Urolog y Take 1 Take 1 Take 1 capsule capsule capsule every day every day every day by oral by oral by oral route. Take route. Take route. one capsule one capsule Take one 30 minutes 30 minutes capsule 30 after after minutes dinner, dinner, after each each dinner, night.Stop night.Stop each taking taking night.Stop medication medication taking and notify and notify medication MD MD and notify immediately immediately MD if you if you immediatel experience experience y if you any any experience new/worseni new/worseni any ng issues, ng issues, new/worsen specificall specificall ing y y issues, headaches, headaches, specifical dizziness, dizziness, ly lightheaded lightheaded headaches, ness, ness, dizziness, visual visual lightheade changes, changes, dness, nausea, or nausea, or visual unsteadines unsteadines changes, s. -- S. s. -- S. nausea, or MD Krista Velasco MD unsteadine ss. -- S. MD Krista atorvastati atorvastati No atorvastat [facility] n 20 mg n 20 mg in 20 mg [facility] tablet TAKE tablet TAKE tablet Urology 1 TABLET BY 1 TABLET BY TAKE 1 MOUTH EVERY MOUTH EVERY TABLET BY DAY DAY MOUTH EVERY DAY Baby Baby No 1 Q1D [facility] Aspirin 81 Aspirin 81 Aspirin 81 [facility] mg chewable mg chewable mg U rology tablet Chew tablet Chew chewable 1 tablet 1 tablet tablet every day every day Chew 1 by oral by oral tablet route. route. every day by oral route. carvedilol carvedilol No carvedilol [facility] 3.125 mg 3.125 mg 3.125 mg [facility] ro tablet TAKE tablet TAKE tablet Urology 1 TABLET BY 1 TABLET BY TAKE 1 MOUTH TWICE MOUTH TWICE TABLET BY A DAY WITH A DAY WITH MOUTH MEALS MEALS TWICE A DAY WITH MEALS eplerenone eplerenone No eplerenone [facility] 25 mg 25 mg 25 mg [facility] tablet tablet tablet Urology ergocalcife ergocalcife No ergocalcif [facility] rol [facility]l [facility] (vitamin (vitamin (vitamin Uro logy D2) 1,250 D2) 1,250 D2) 1,250 mcg (50,000 mcg (50,000 mcg unit) unit) (50,000 capsule capsule unit) TAKE ONE TAKE ONE capsule CAPSULE BY CAPSULE BY TAKE ONE MOUTH MOUTH CAPSULE BY WEEKLY FOR WEEKLY FOR MOUTH 1 MONTH 1 MONTH WEEKLY FOR THEN ONCE A THEN ONCE A 1 MONTH MONTH MONTH THEN ONCE A MONTH gabapentin gabapentin No gabapentin [facility] 100 mg 100 mg 100 mg [facility] capsule capsule capsule Urolog y TAKE 1 TAKE 1 TAKE 1 CAPSULE BY CAPSULE BY CAPSULE BY MOUTH THREE MOUTH THREE MOUTH TIMES A DAY TIMES A DAY THREE TIMES A DAY lisinopril lisinopril No lisinopril [facility] 20 20 20 [facility] mg-hydrochl mg-hydrochl mg-hydroch Urology orothiazide orothiazide [facility] 12.5 mg 12.5 mg de 12.5 mg tablet TAKE tablet TAKE tablet 1 TABLET BY 1 TABLET BY TAKE 1 MOUTH EVERY MOUTH EVERY TABLET BY DAY DAY MOUTH EVERY DAY Lupron Lupron No 1kit(s) Lupron [place] 45 mg [place] 45 mg [place] 45 [facility] (6 Month) (6 Month) mg (6 Urol ogy intramuscul intramuscul Month) ar syringe ar syringe intramuscu kit Inject kit Inject lar 1 kit by 1 kit by syringe intramuscul intramuscul kit Inject ar route. ar route. 1 kit by intramuscu lar route. tamsulosin tamsulosin No 1capsul Q1D tamsulosin [facility] 0.4 mg 0.4 mg e(s) 0.4 mg [facility] capsule capsule capsule Urolog y Take 1 Take 1 Take 1 capsule capsule capsule every day every day every day by oral by oral by oral route. Take route. Take route. one capsule one capsule Take one 30 minutes 30 minutes capsule 30 after after minutes dinner, dinner, after each each dinner, night.Stop night.Stop each taking taking night.Stop medication medication taking and notify and notify medication MD and notify immediately immediately MD if you if you immediatel experience experience y if you any any experience new/worseni new/worseni any ng issues, ng issues, new/worsen specificall specificall ing y y issues, headaches, headaches, specifical dizziness, dizziness, ly lightheaded lightheaded headaches, ness, ness, dizziness, visual visual lightheade changes, changes, dness, nausea, or nausea, or visual unsteadines unsteadines changes, s. -- S. s. -- S. nausea, or MD Krista Velasco MD unsteadine ss. -- S. MD Krista atorvastajose alfredo atorvastati No atorvastat [facility] n 20 mg n 20 mg in 20 mg [facility] tablet TAKE tablet TAKE tablet Urology 1 TABLET BY 1 TABLET BY TAKE 1 MOUTH EVERY MOUTH EVERY TABLET BY DAY DAY MOUTH EVERY DAY Baby Baby No 1 Q1D [facility] Aspirin 81 Aspirin 81 Asp[facility]in 81 [facility] mg chewable mg chewable mg U rology tablet Chew tablet Chew chewable 1 tablet 1 tablet tablet every day every day Chew 1 by oral by oral tablet route. route. every day by oral route. atorvastati atorvastati No atorvastat [facility] n 20 mg n 20 mg in 20 mg [facility] tablet TAKE tablet TAKE tablet Urology 1 TABLET BY 1 TABLET BY TAKE 1 MOUTH EVERY MOUTH EVERY TABLET BY DAY DAY MOUTH EVERY DAY Baby Baby No 1 Q1D [facility] Aspirin 81 Aspirin 81 Asp[facility]in 81 [facility] mg chewable mg chewable mg U rology tablet Chew tablet Chew chewable 1 tablet 1 tablet tablet every day every day Chew 1 by oral by oral tablet route. route. every day by oral route. carvedilol carvedilol No carvedilol [facility] 3.125 mg 3.125 mg 3.125 mg [facility] ro tablet TAKE tablet TAKE tablet Urology 1 TABLET BY 1 TABLET BY TAKE 1 MOUTH TWICE MOUTH TWICE TABLET BY A DAY WITH A DAY WITH MOUTH MEALS MEALS TWICE A DAY WITH MEALS carvedilol carvedilol No carvedilol [facility] 3.125 mg 3.125 mg 3.125 mg [facility] ro tablet TAKE tablet TAKE tablet Urology 1 TABLET BY 1 TABLET BY TAKE 1 MOUTH TWICE MOUTH TWICE TABLET BY A DAY WITH A DAY WITH MOUTH MEALS MEALS TWICE A DAY WITH MEALS eplerenone eplerenone No eplerenone [facility] 25 mg 25 mg 25 mg [facility] tablet tablet tablet Urology ergocalcife ergocalcife No ergocalcif [facility] rol [place] [place] (vitamin (vitamin (vitamin Uro logy D2) 1,250 D2) 1,250 D2) 1,250 mcg (50,000 mcg (50,000 mcg unit) unit) (50,000 capsule capsule unit) TAKE ONE TAKE ONE capsule CAPSULE BY CAPSULE BY TAKE ONE MOUTH MOUTH CAPSULE BY WEEKLY FOR WEEKLY FOR MOUTH 1 MONTH 1 MONTH WEEKLY FOR THEN ONCE A THEN ONCE A 1 MONTH MONTH MONTH THEN ONCE A MONTH gabapentin gabapentin No gabapentin [facility] 100 mg 100 mg 100 mg [facility] capsule capsule capsule Urolog y TAKE 1 TAKE 1 TAKE 1 CAPSULE BY CAPSULE BY CAPSULE BY MOUTH THREE MOUTH THREE MOUTH TIMES A DAY TIMES A DAY THREE TIMES A DAY lisinopril lisinopril No lisinopril [facility] 20 20 20 [facility] mg-hydrochl mg-hydrochl mg-hydroch Urology orothiazide orothiazide [facility] 12.5 mg 12.5 mg de 12.5 mg tablet TAKE tablet TAKE tablet 1 TABLET BY 1 TABLET BY TAKE 1 MOUTH EVERY MOUTH EVERY TABLET BY DAY DAY MOUTH EVERY DAY Lupron Lupron No 1kit(s) Lupron [place] 45 mg [place] 45 mg [place] 45 [facility] (6 Month) (6 Month) mg (6 Urol ogy intramuscul intramuscul Month) ar syringe ar syringe intramuscu kit Inject kit Inject lar 1 kit by 1 kit by syringe intramuscul intramuscul kit Inject ar route. ar route. 1 kit by intramuscu lar route. tamsulosin tamsulosin No 1capsul Q1D tamsulosin [facility] 0.4 mg 0.4 mg e(s) 0.4 mg [facility] capsule capsule capsule Urolog y Take 1 Take 1 Take 1 capsule capsule capsule every day every day every day by oral by oral by oral route. Take route. Take route. one capsule one capsule Take one 30 minutes 30 minutes capsule 30 after after minutes dinner, dinner, after each each dinner, night.Stop night.Stop each taking taking night.Stop medication medication taking and notify and notify medication MD and notify immediately immediately MD if you if you immediatel experience experience y if you any any experience new/worseni new/worseni any ng issues, ng issues, new/worsen specificall specificall ing y y issues, headaches, headaches, specifical dizziness, dizziness, ly lightheaded lightheaded headaches, ness, ness, dizziness, visual visual lightheade changes, changes, dness, nausea, or nausea, or visual unsteadines unsteadines changes, s. -- S. s. -- S. nausea, or MD Krista Velasco MD unsteadine ss. -- S. MD Krista ciprofloxac ciprofloxac No ciprofloxa [facility] in 500 mg in 500 mg adam 500 mg [facility] tablet TAKE tablet TAKE tablet U[facility] 1 TABLET BY 1 TABLET BY TAKE 1 MOUTH EVERY MOUTH EVERY TABLET BY 12 HOURS 12 HOURS MOUTH FOR 7 DAYS FOR 7 DAYS EVERY 12 HOURS FOR 7 DAYS gabapentin gabapentin No gabapentin [facility] 100 mg 100 mg 100 mg [facility] capsule capsule capsule Urolog y TAKE 1 TAKE 1 TAKE 1 CAPSULE BY CAPSULE BY CAPSULE BY MOUTH THREE MOUTH THREE MOUTH TIMES A DAY TIMES A DAY THREE TIMES A DAY lisinopril lisinopril No lisinopril [facility] 20 20 20 [facility] mg-hydrochl mg-hydrochl mg-hydroch Urology orothiazide orothiazide [facility] 12.5 mg 12.5 mg de 12.5 mg tablet TAKE tablet TAKE tablet 1 TABLET BY 1 TABLET BY TAKE 1 MOUTH EVERY MOUTH EVERY TABLET BY DAY DAY MOUTH EVERY DAY atorvastati atorvastati No atorvastat [facility] n 20 mg n 20 mg in 20 mg [facility] tablet TAKE tablet TAKE tablet Urology 1 TABLET BY 1 TABLET BY TAKE 1 MOUTH EVERY MOUTH EVERY TABLET BY DAY DAY MOUTH EVERY DAY Baby Baby No 1 Q1D Baby [facility] Aspirin 81 Aspirin 81 Aspirin 81 [facility] mg chewable mg chewable mg U rology tablet Chew tablet Chew chewable 1 tablet 1 tablet tablet every day every day Chew 1 by oral by oral tablet route. route. every day by oral route. carvedilol carvedilol No carvedilol [facility] 3.125 mg 3.125 mg 3.125 mg [facility] ro tablet TAKE tablet TAKE tablet Urology 1 TABLET BY 1 TABLET BY TAKE 1 MOUTH TWICE MOUTH TWICE TABLET BY A DAY WITH A DAY WITH MOUTH MEALS MEALS TWICE A DAY WITH MEALS eplerenone eplerenone No eplerenone [facility] 25 mg 25 mg 25 mg [facility] tablet tablet tablet Urology ergocalcife ergocalcife No ergocalcif [facility] rol [facility]l [place] (vitamin (vitamin (vitamin Uro logy D2) 1,250 D2) 1,250 D2) 1,250 mcg (50,000 mcg (50,000 mcg unit) unit) (50,000 capsule capsule unit) TAKE ONE TAKE ONE capsule CAPSULE BY CAPSULE BY TAKE ONE MOUTH MOUTH CAPSULE BY WEEKLY FOR WEEKLY FOR MOUTH 1 MONTH 1 MONTH WEEKLY FOR THEN ONCE A THEN ONCE A 1 MONTH MONTH MONTH THEN ONCE A MONTH gabapentin gabapentin No gabapentin [facility] 100 mg 100 mg 100 mg [facility] capsule capsule capsule Urolog y TAKE 1 TAKE 1 TAKE 1 CAPSULE BY CAPSULE BY CAPSULE BY MOUTH THREE MOUTH THREE MOUTH TIMES A DAY TIMES A DAY THREE TIMES A DAY sulfamethox sulfamethox No sulfametho [facility] azole 800 azole 800 xazole 800 [facility] mg-trimetho mg-trimetho mg-trimeth [facility] prim 160 mg prim 160 mg oprim 160 tablet TAKE tablet TAKE mg tablet 1 TABLET BY 1 TABLET BY TAKE 1 MOUTH EVERY MOUTH EVERY TABLET BY 12 HOURS 12 HOURS MOUTH FOR 3 DAYS FOR 3 DAYS EVERY 12 HOURS FOR 3 DAYS lisinopril lisinopril No lisinopril [facility] 20 20 20 [facility] mg-hydrochl mg-hydrochl mg-hydroch Urology orothiazide orothiazide [facility] 12.5 mg 12.5 mg de 12.5 mg tablet TAKE tablet TAKE tablet 1 TABLET BY 1 TABLET BY TAKE 1 MOUTH EVERY MOUTH EVERY TABLET BY DAY DAY MOUTH EVERY DAY Lupron Lupron No 1kit(s) Lupron [place] 45 mg [place] 45 mg [place] 45 [facility] (6 Month) (6 Month) mg (6 Urol ogy intramuscul intramuscul Month) ar syringe ar syringe intramuscu kit Inject kit Inject lar 1 kit by 1 kit by syringe intramuscul intramuscul kit Inject ar route. ar route. 1 kit by intramuscu lar route. tamsulosin tamsulosin No 1capsul Q1D tamsulosin [facility] 0.4 mg 0.4 mg e(s) 0.4 mg [facility] capsule capsule capsule Urolog y Take 1 Take 1 Take 1 capsule capsule capsule every day every day every day by oral by oral by oral route. Take route. Take route. one capsule one capsule Take one 30 minutes 30 minutes capsule 30 after after minutes dinner, dinner, after each each dinner, night.Stop night.Stop each taking taking night.Stop medication medication taking and notify and notify medication MD MARADIAGA and notify immediately immediately MD if you if you immediatel experience experience y if you any any experience new/worseni new/worseni any ng issues, ng issues, new/worsen specificall specificall ing y y issues, headaches, headaches, specifical dizziness, dizziness, ly lightheaded lightheaded headaches, ness, ness, dizziness, visual visual lightheade changes, changes, dness, nausea, or nausea, or visual unsteadines unsteadines changes, s. -- S. s. -- S. nausea, or MD Krista Velasco MD unsteadine ss. -- S. MD Krista atorvastati atorvastati No atorvastat [facility] n 20 mg n 20 mg in 20 mg [facility] tablet TAKE tablet TAKE tablet Urology 1 TABLET BY 1 TABLET BY TAKE 1 MOUTH EVERY MOUTH EVERY TABLET BY DAY DAY MOUTH EVERY DAY Baby Baby No 1 Q1D Baby [facility] Aspirin 81 Aspirin 81 Aspirin 81 [facility] mg chewable mg chewable mg U rology tablet Chew tablet Chew chewable 1 tablet 1 tablet tablet every day every day Chew 1 by oral by oral tablet route. route. every day by oral route. carvedilol carvedilol No carvedilol [facility] 3.125 mg 3.125 mg 3.125 mg Met ro tablet TAKE tablet TAKE tablet Urology 1 TABLET BY 1 TABLET BY TAKE 1 MOUTH TWICE MOUTH TWICE TABLET BY A DAY WITH A DAY WITH MOUTH MEALS MEALS TWICE A DAY WITH MEALS eplerenone eplerenone No eplerenone [facility] 25 mg 25 mg 25 mg [facility] tablet tablet tablet Urology ergocalcife ergocalcife No ergocalcif [facility] rol [place]l [place] (vitamin (vitamin (vitamin Uro logy D2) 1,250 D2) 1,250 D2) 1,250 mcg (50,000 mcg (50,000 mcg unit) unit) (50,000 capsule capsule unit) TAKE ONE TAKE ONE capsule CAPSULE BY CAPSULE BY TAKE ONE MOUTH MOUTH CAPSULE BY WEEKLY FOR WEEKLY FOR MOUTH 1 MONTH 1 MONTH WEEKLY FOR THEN ONCE A THEN ONCE A 1 MONTH MONTH MONTH THEN ONCE A MONTH gabapentin gabapentin No gabapentin [facility] 100 mg 100 mg 100 mg [facility] capsule capsule capsule Urolog y TAKE 1 TAKE 1 TAKE 1 CAPSULE BY CAPSULE BY CAPSULE BY MOUTH THREE MOUTH THREE MOUTH TIMES A DAY TIMES A DAY THREE TIMES A DAY lisinopril lisinopril No lisinopril [facility] 20 20 20 [facility] mg-hydrochl mg-hydrochl mg-hydroch Urology orothiazide orothiazide [facility] 12.5 mg 12.5 mg de 12.5 mg tablet TAKE tablet TAKE tablet 1 TABLET BY 1 TABLET BY TAKE 1 MOUTH EVERY MOUTH EVERY TABLET BY DAY DAY MOUTH EVERY DAY Lupron Lupron No 1kit(s) Lupron [place] 45 mg [facility] 45 mg [place] 45 [facility] (6 Month) (6 Month) mg (6 Urol ogy intramuscul intramuscul Month) ar syringe ar syringe intramuscu kit Inject kit Inject lar 1 kit by 1 kit by syringe intramuscul intramuscul kit Inject ar route. ar route. 1 kit by intramuscu lar route. tamsulosin tamsulosin No 1capsul Q1D tamsulosin [facility] 0.4 mg 0.4 mg e(s) 0.4 mg [facility] capsule capsule capsule Urolog y Take 1 Take 1 Take 1 capsule capsule capsule every day every day every day by oral by oral by oral route. Take route. Take route. one capsule one capsule Take one 30 minutes 30 minutes capsule 30 after after minutes dinner, dinner, after each each dinner, night.Stop night.Stop each taking taking night.Stop medication medication taking and notify and notify medication MD MD and notify immediately immediately MD if you if you immediatel experience experience y if you any any experience new/worseni new/worseni any ng issues, ng issues, new/worsen specificall specificall ing y y issues, headaches, headaches, specifical dizziness, dizziness, ly lightheaded lightheaded headaches, ness, ness, dizziness, visual visual lightheade changes, changes, dness, nausea, or nausea, or visual unsteadines unsteadines changes, s. -- S. s. -- S. nausea, or MD Krista Velasco MD unsteadine ss. -- S. MD Krista atorvastati atorvastati No atorvastat [facility] n 20 mg n 20 mg in 20 mg [facility] tablet TAKE tablet TAKE tablet Urology 1 TABLET BY 1 TABLET BY TAKE 1 MOUTH EVERY MOUTH EVERY TABLET BY DAY DAY MOUTH EVERY DAY Baby Baby No 1 Q1D Baby [facility] Aspirin 81 Aspirin 81 Aspirin 81 [facility] mg chewable mg chewable mg U rology tablet Chew tablet Chew chewable 1 tablet 1 tablet tablet every day every day Chew 1 by oral by oral tablet route. route. every day by oral route. carvedilol carvedilol No carvedilol [facility] 3.125 mg 3.125 mg 3.125 mg Met ro tablet TAKE tablet TAKE tablet Urology 1 TABLET BY 1 TABLET BY TAKE 1 MOUTH TWICE MOUTH TWICE TABLET BY A DAY WITH A DAY WITH MOUTH MEALS MEALS TWICE A DAY WITH MEALS eplerenone eplerenone No eplerenone [facility] 25 mg 25 mg 25 mg [facility] tablet tablet tablet Urology ergocalcife ergocalcife No ergocalcif [facility] rol rol [place] (vitamin (vitamin (vitamin Uro logy D2) 1,250 D2) 1,250 D2) 1,250 mcg (50,000 mcg (50,000 mcg unit) unit) (50,000 capsule capsule unit) TAKE ONE TAKE ONE capsule CAPSULE BY CAPSULE BY TAKE ONE MOUTH MOUTH CAPSULE BY WEEKLY FOR WEEKLY FOR MOUTH 1 MONTH 1 MONTH WEEKLY FOR THEN ONCE A THEN ONCE A 1 MONTH MONTH MONTH THEN ONCE A MONTH gabapentin gabapentin No gabapentin [facility] 100 mg 100 mg 100 mg [facility] capsule capsule capsule Urolog y TAKE 1 TAKE 1 TAKE 1 CAPSULE BY CAPSULE BY CAPSULE BY MOUTH THREE MOUTH THREE MOUTH TIMES A DAY TIMES A DAY THREE TIMES A DAY lisinopril lisinopril No lisinopril [facility] 20 20 20 [facility] mg-hydrochl mg-hydrochl mg-hydroch Urology orothiazide orothiazide [facility] 12.5 mg 12.5 mg de 12.5 mg tablet TAKE tablet TAKE tablet 1 TABLET BY 1 TABLET BY TAKE 1 MOUTH EVERY MOUTH EVERY TABLET BY DAY DAY MOUTH EVERY DAY Lupron Lupron No 1kit(s) Lupron [place] 45 mg [place] 45 mg [place] 45 [facility] (6 Month) (6 Month) mg (6 Urol ogy intramuscul intramuscul Month) ar syringe ar syringe intramuscu kit Inject kit Inject lar 1 kit by 1 kit by syringe intramuscul intramuscul kit Inject ar route. ar route. 1 kit by intramuscu lar route. tamsulosin tamsulosin No 1capsul Q1D tamsulosin [place] 0.4 mg 0.4 mg e(s) 0.4 mg [facility] capsule capsule capsule Urolog y Take 1 Take 1 Take 1 capsule capsule capsule every day every day every day by oral by oral by oral route. Take route. Take route. one capsule one capsule Take one 30 minutes 30 minutes capsule 30 after after minutes dinner, dinner, after each each dinner, night.Stop night.Stop each taking taking night.Stop medication medication taking and notify and notify medication MD MARADIAGA and notify immediately immediately MD if you if you immediatel experience experience y if you any any experience new/worseni new/worseni any ng issues, ng issues, new/worsen specificall specificall ing y y issues, headaches, headaches, specifical dizziness, dizziness, ly lightheaded lightheaded headaches, ness, ness, dizziness, visual visual lightheade changes, changes, dness, nausea, or nausea, or visual unsteadines unsteadines changes, s. -- S. s. -- S. nausea, or MD Krista Velasco MD unsteadine ss. -- S. MD Krista Toviaz 8 mg Toviaz 8 mg No 1 Q1D [place] 8 [facility] tablet,exte tablet,exte mg M etro nded nded tablet,ext Urology release release ended Take 1 Take 1 release tablet tablet Take 1 every day every day tablet by oral by oral every day route for route for by oral 14 days. 14 days. route for 14 days. atorvastati atorvastati No atorvastat [place] n 20 mg n 20 mg in 20 mg [facility] tablet TAKE tablet TAKE tablet Urology 1 TABLET BY 1 TABLET BY TAKE 1 MOUTH EVERY MOUTH EVERY TABLET BY DAY DAY MOUTH EVERY DAY Baby Baby No 1 Q1D Baby [place] Aspirin 81 Aspirin 81 Aspirin 81 [facility] mg chewable mg chewable mg U rology tablet Chew tablet Chew chewable 1 tablet 1 tablet tablet every day every day Chew 1 by oral by oral tablet route. route. every day by oral route. carvedilol carvedilol No carvedilol [place] 3.125 mg 3.125 mg 3.125 mg [facility] ro tablet TAKE tablet TAKE tablet Urology 1 TABLET BY 1 TABLET BY TAKE 1 MOUTH TWICE MOUTH TWICE TABLET BY A DAY WITH A DAY WITH MOUTH MEALS MEALS TWICE A DAY WITH MEALS eplerenone eplerenone No eplerenone [place] 25 mg 25 mg 25 mg [facility] tablet tablet tablet Urology ergocalcife ergocalcife No ergocalcif [place] rol rol [facility] (vitamin (vitamin (vitamin Uro logy D2) 1,250 D2) 1,250 D2) 1,250 mcg (50,000 mcg (50,000 mcg unit) unit) (50,000 capsule capsule unit) TAKE ONE TAKE ONE capsule CAPSULE BY CAPSULE BY TAKE ONE MOUTH MOUTH CAPSULE BY WEEKLY FOR WEEKLY FOR MOUTH 1 MONTH 1 MONTH WEEKLY FOR THEN ONCE A THEN ONCE A 1 MONTH MONTH MONTH THEN ONCE A MONTH fesoterodin fesoterodin No fesoterodi [place] e ER 8 mg e ER 8 mg ne ER 8 mg [facility] tablet,exte tablet,exte tablet,ext Urology nded nded ended release 24 release 24 release 24 hr Take 1 hr Take 1 hr Take 1 tablet tablet tablet every day every day every day by oral by oral by oral route for route for route for 14 days. 14 days. 14 days. gabapentin gabapentin No gabapentin [place] 100 mg 100 mg 100 mg [facility] capsule capsule capsule Urolog y TAKE 1 TAKE 1 TAKE 1 CAPSULE BY CAPSULE BY CAPSULE BY MOUTH THREE MOUTH THREE MOUTH TIMES A DAY TIMES A DAY THREE TIMES A DAY lisinopril lisinopril No lisinopril [place] 20 20 20 [facility] mg-hydrochl mg-hydrochl mg-hydroch Urology orothiazide orothiazide lorothiazi 12.5 mg 12.5 mg de 12.5 mg tablet TAKE tablet TAKE tablet 1 TABLET BY 1 TABLET BY TAKE 1 MOUTH EVERY MOUTH EVERY TABLET BY DAY DAY MOUTH EVERY DAY Lupron Lupron No 1kit(s) Lupron [place] 45 mg [place] 45 mg [place] 45 [facility] (6 Month) (6 Month) mg (6 Urol ogy intramuscul intramuscul Month) ar syringe ar syringe intramuscu kit Inject kit Inject lar 1 kit by 1 kit by syringe intramuscul intramuscul kit Inject ar route. ar route. 1 kit by intramuscu lar route. tamsulosin tamsulosin No 1capsul Q1D tamsulosin [place] 0.4 mg 0.4 mg e(s) 0.4 mg [facility] capsule capsule capsule Urolog y Take 1 Take 1 Take 1 capsule capsule capsule every day every day every day by oral by oral by oral route. Take route. Take route. one capsule one capsule Take one 30 minutes 30 minutes capsule 30 after after minutes dinner, dinner, after each each dinner, night.Stop night.Stop each taking taking night.Stop medication medication taking and notify and notify medication MD and notify immediately immediately MD if you if you immediatel experience experience y if you any any experience new/worseni new/worseni any ng issues, ng issues, new/worsen specificall specificall ing y y issues, headaches, headaches, specifical dizziness, dizziness, ly lightheaded lightheaded headaches, ness, ness, dizziness, visual visual lightheade changes, changes, dness, nausea, or nausea, or visual unsteadines unsteadines changes, s. -- S. s. -- S. nausea, or MD Krista Velasco MD unsteadine ss. -- S. MD Krista Baby Baby No 1 Q1D Baby [place] Aspirin 81 Aspirin 81 Aspirin 81 [facility] mg chewable mg chewable mg U rology tablet Chew tablet Chew chewable 1 tablet 1 tablet tablet every day every day Chew 1 by oral by oral tablet route. route. every day by oral route. carvedilol carvedilol No carvedilol [place] 3.125 mg 3.125 mg 3.125 mg [facility] tablet TAKE tablet TAKE tablet Urology 1 TABLET BY 1 TABLET BY TAKE 1 MOUTH TWICE MOUTH TWICE TABLET BY A DAY WITH A DAY WITH MOUTH MEALS MEALS TWICE A DAY WITH MEALS gabapentin gabapentin No 1capsul TID gabapentin [place] 100 mg 100 mg e(s) 100 mg [facility] capsule capsule capsule Urolog y Take 1 Take 1 Take 1 capsule 3 capsule 3 capsule 3 times a day times a day times a by oral by oral day by route. route. oral route. lisinopril lisinopril No lisinopril [place] 20 20 20 [facility] mg-hydrochl mg-hydrochl mg-hydroch Urology orothiazide orothiazide [place]ia[place] 12.5 mg 12.5 mg de 12.5 mg tablet tablet tablet Baby Baby No 1 Q1D Baby [place] Aspirin 81 Aspirin 81 Aspirin 81 [facility] mg chewable mg chewable mg U rology tablet Chew tablet Chew chewable 1 tablet 1 tablet tablet every day every day Chew 1 by oral by oral tablet route. route. every day by oral route. carvedilol carvedilol No carvedilol [place] 3.125 mg 3.125 mg 3.125 mg [facility] ro tablet TAKE tablet TAKE tablet Urology 1 TABLET BY 1 TABLET BY TAKE 1 MOUTH TWICE MOUTH TWICE TABLET BY A DAY WITH A DAY WITH MOUTH MEALS MEALS TWICE A DAY WITH MEALS gabapentin gabapentin No gabapentin [place] 100 mg 100 mg 100 mg [facility] capsule capsule capsule Urolog y Take 1 Take 1 Take 1 capsule 3 capsule 3 capsule 3 times a day times a day times a by oral by oral day by route. route. oral route. lisinopril lisinopril No lisinopril [place] 20 20 20 [facility] mg-hydrochl mg-hydrochl mg-hydroch Urology orothiazide orothiazide lorothiazi 12.5 mg 12.5 mg de 12.5 mg tablet tablet tablet sulfamethox sulfamethox No sulfametho [place] azole 800 azole 800 xazole 800 [facility] mg-trimetho mg-trimetho mg-trimeth [facility] prim 160 mg prim 160 mg oprim 160 tablet Take tablet Take mg tablet 1 tablet 1 tablet Take 1 every 12 every 12 tablet hours by hours by every 12 oral route oral route hours by for 3 days. for 3 days. oral route for 3 days. Immunizations Ordered Immunization Filled Immunization Date Status Commen ts Source Name Name COVID-19, mRNA, COVID-19, mRNA, 2021-03-26 Completed [place] [facility] LNP-S, PF, 30 mcg/0.3 LNP-S, PF, 30 mcg/0.3 00:00:00 Urology mL dose mL dose ([facility]) ([facility]) COVID-19, mRNA, COVID-19, mRNA, 2021-03-26 Completed [place] [facility] LNP-S, PF, 30 mcg/0.3 LNP-S, PF, 30 mcg/0.3 00:00:00 Urology mL dose mL dose ([employer]) ([facility]) COVID-19, mRNA, COVID-19, mRNA, 2021-03-26 Completed [place] [facility] LNP-S, PF, 30 mcg/0.3 LNP-S, PF, 30 mcg/0.3 00:00:00 Urology mL dose mL dose ([employer]) ([employer]) COVID-19, mRNA, COVID-19, mRNA, 2021-03-26 Completed [place] [facility] LNP-S, PF, 30 mcg/0.3 LNP-S, PF, 30 mcg/0.3 00:00:00 Urology mL dose mL dose ([employer]) ([employer]) COVID-19, mRNA, COVID-19, mRNA, 2021-03-26 Completed [place] LNP-S, PF, 30 mcg/0.3 LNP-S, PF, 30 mcg/0.3 00:00:00 Urology mL dose mL dose ([employer]) ([employer]) COVID-19, mRNA, COVID-19, mRNA, 2021-03-26 Completed [place] LNP-S, PF, 30 mcg/0.3 LNP-S, PF, 30 mcg/0.3 00:00:00 Urology mL dose mL dose ([employer]) ([employer]) COVID-19, mRNA, COVID-19, mRNA, 2021-03-26 Completed [place] LNP-S, PF, 30 mcg/0.3 LNP-S, PF, 30 mcg/0.3 00:00:00 Urology mL dose mL dose ([employer]) ([employer]) COVID-19, mRNA, COVID-19, mRNA, 2021-03-26 Completed [place] LNP-S, PF, 30 mcg/0.3 LNP-S, PF, 30 mcg/0.3 00:00:00 Urology mL dose mL dose ([employer]) ([employer]) COVID-19, mRNA, COVID-19, mRNA, 2021-03-26 Completed [place] LNP-S, PF, 30 mcg/0.3 LNP-S, PF, 30 mcg/0.3 00:00:00 Urology mL dose mL dose ([employer]) ([employer]) COVID-19, mRNA, COVID-19, mRNA, 2021-03-26 Completed [place] LNP-S, PF, 30 mcg/0.3 LNP-S, PF, 30 mcg/0.3 00:00:00 Urology mL dose mL dose ([employer]) ([employer]) COVID-19, mRNA, COVID-19, mRNA, 2021-03-26 Completed [place] LNP-S, PF, 30 mcg/0.3 LNP-S, PF, 30 mcg/0.3 00:00:00 Urology mL dose mL dose ([employer]) ([employer]) COVID-19, mRNA, COVID-19, mRNA, 2021-03-26 Completed [place] LNP-S, PF, 30 mcg/0.3 LNP-S, PF, 30 mcg/0.3 00:00:00 Urology mL dose mL dose ([employer]) ([employer]) COVID-19, mRNA, COVID-19, mRNA, 2021-03-26 Completed [place] LNP-S, PF, 30 mcg/0.3 LNP-S, PF, 30 mcg/0.3 00:00:00 Urology mL dose mL dose ([employer]) ([employer]) COVID-19, mRNA, COVID-19, mRNA, 2021-03-26 Completed [place] LNP-S, PF, 30 mcg/0.3 LNP-S, PF, 30 mcg/0.3 00:00:00 Urology mL dose mL dose ([employer]) ([employer]) COVID-19, mRNA, COVID-19, mRNA, 2021-03-26 Completed [place] LNP-S, PF, 30 mcg/0.3 LNP-S, PF, 30 mcg/0.3 00:00:00 Urology mL dose mL dose ([employer]) ([employer]) COVID-19, mRNA, COVID-19, mRNA, 2021-03-26 Completed [place] LNP-S, PF, 30 mcg/0.3 LNP-S, PF, 30 mcg/0.3 00:00:00 Urology mL dose mL dose ([employer]) ([employer]) COVID-19, mRNA, COVID-19, mRNA, 2021-03-26 Completed [place] LNP-S, PF, 30 mcg/0.3 LNP-S, PF, 30 mcg/0.3 00:00:00 Urology mL dose mL dose ([employer]) ([employer]) COVID-19, mRNA, COVID-19, mRNA, 2021-03-26 Completed [place] LNP-S, PF, 30 mcg/0.3 LNP-S, PF, 30 mcg/0.3 00:00:00 Urology mL dose mL dose ([employer]) ([employer]) COVID-19, mRNA, COVID-19, mRNA, 2021-03-26 Completed [place] LNP-S, PF, 30 mcg/0.3 LNP-S, PF, 30 mcg/0.3 00:00:00 Urology mL dose mL dose ([employer]) ([employer]) COVID-19, mRNA, COVID-19, mRNA, 2021-03-26 Completed [place] LNP-S, PF, 30 mcg/0.3 LNP-S, PF, 30 mcg/0.3 00:00:00 Urology mL dose mL dose ([employer]) ([employer]) pneumococcal pneumococcal 2021-03-14 Completed [facility] tro polysaccharide PPV23 polysaccharide PPV23 00:00:00 Urology influenza, influenza, 2021-03-14 Completed [facility] injectable, injectable, 00:00:00 Urology quadrivalent quadrivalent pneumococcal pneumococcal 2021-03-14 Com[address] [place] Me tro polysaccharide PPV23 polysaccharide PPV23 00:00:00 Urology influenza, influenza, 2021-03-14 Completed [place] [facility] injectable, injectable, 00:00:00 Urology quadrivalent quadrivalent pneumococcal pneumococcal 2021-03-14 Completed [place] Me tro polysaccharide PPV23 polysaccharide PPV23 00:00:00 Urology influenza, influenza, 2021-03-14 Completed [place] [facility] injectable, injectable, 00:00:00 Urology quadrivalent quadrivalent pneumococcal pneumococcal 2021-03-14 Completed [place] [facility] tro polysaccharide PPV23 polysaccharide PPV23 00:00:00 Urology influenza, influenza, 2021-03-14 Completed [place] [facility] injectable, injectable, 00:00:00 Urology quadrivalent quadrivalent pneumococcal pneumococcal 2021-03-14 Completed [facility] tro polysaccharide PPV23 polysaccharide PPV23 00:00:00 Urology influenza, influenza, 2021-03-14 [facility], 00:00:00 Urology quadrivalent quadrivalent pneumococcal pneumococcal 2021-03-14 Completed [facility] tro polysaccharide PPV23 polysaccharide PPV23 00:00:00 Urology influenza, influenza, 2021-03-14 [facility], 00:00:00 Urology quadrivalent quadrivalent pneumococcal pneumococcal 2021-03-14 Completed [facility] tro polysaccharide PPV23 polysaccharide PPV23 00:00:00 Urology influenza, influenza, 2021-03-14 [facility], 00:00:00 Urology quadrivalent quadrivalent pneumococcal pneumococcal 2021-03-14 Completed [facility] tro polysaccharide PPV23 polysaccharide PPV23 00:00:00 Urology influenza, influenza, 2021-03-14 [facility], 00:00:00 Urology quadrivalent quadrivalent pneumococcal pneumococcal 2021-03-14 Completed [facility] tro polysaccharide PPV23 polysaccharide PPV23 00:00:00 Urology influenza, influenza, 2021-03-14 Completed [place] [facility] injectable, injectable, 00:00:00 Urology quadrivalent quadrivalent pneumococcal pneumococcal 2021-03-14 Completed [facility] tro polysaccharide PPV23 polysaccharide PPV23 00:00:00 Urology influenza, influenza, 2021-03-14 Completed [place] [facility] injectable, injectable, 00:00:00 Urology quadrivalent quadrivalent pneumococcal pneumococcal 2021-03-14 Completed [place] [facility] polysaccharide PPV23 polysaccharide PPV23 00:00:00 Urology influenza, influenza, 2021-03-14 Completed [place] [facility] injectable, injectable, 00:00:00 Urology quadrivalent quadrivalent pneumococcal pneumococcal 2021-03-14 Completed [place] Me tro polysaccharide PPV23 polysaccharide PPV23 00:00:00 Urology influenza, influenza, 2021-03-14 Completed [place] [facility] injectable, injectable, 00:00:00 Urology quadrivalent quadrivalent pneumococcal pneumococcal 2021-03-14 Completed [place] Me tro polysaccharide PPV23 polysaccharide PPV23 00:00:00 Urology influenza, influenza, 2021-03-14 Completed [place] [facility] injectable, injectable, 00:00:00 Urology quadrivalent quadrivalent pneumococcal pneumococcal 2021-03-14 Completed [facility] tro polysaccharide PPV23 polysaccharide PPV23 00:00:00 Urology influenza, influenza, 2021-03-14 Completed [place] [facility] injectable, injectable, 00:00:00 Urology quadrivalent quadrivalent pneumococcal pneumococcal 2021-03-14 Completed [facility] tro polysaccharide PPV23 polysaccharide PPV23 00:00:00 Urology influenza, influenza, 2021-03-14 [facility], 00:00:00 Urology quadrivalent quadrivalent pneumococcal pneumococcal 2021-03-14 Completed [facility] tro polysaccharide PPV23 polysaccharide PPV23 00:00:00 Urology influenza, influenza, 2021-03-14 Completed [place] [facility] injectable, injectable, 00:00:00 Urology quadrivalent quadrivalent pneumococcal pneumococcal 2021-03-14 Completed [facility] tro polysaccharide PPV23 polysaccharide PPV23 00:00:00 Urology influenza, influenza, 2021-03-14 [facility] inject[facility], 00:00:00 Urology quadrivalent quadrivalent pneumococcal pneumococcal 2021-03-14 Completed [facility] tro polysaccharide PPV23 polysaccharide PPV23 00:00:00 Urology influenza, influenza, 2021-03-14 Completed [place] [facility] injectable, injectable, 00:00:00 Urology quadrivalent quadrivalent pneumococcal pneumococcal 2021-03-14 Completed [facility] tro polysaccharide PPV23 polysaccharide PPV23 00:00:00 Urology influenza, influenza, 2021-03-14 Completed [place] [facility] injectable, injectable, 00:00:00 Urology quadrivalent quadrivalent pneumococcal pneumococcal 2021-03-14 Completed [facility] tro polysaccharide PPV23 polysaccharide PPV23 00:00:00 Urology influenza, influenza, 2021-03-14 Completed [place] [facility] injectable, injectable, 00:00:00 Urology quadrivalent quadrivalent COVID-19, mRNA, COVID-19, mRNA, 2020-07-28 Completed [place] [facility] LNP-S, PF, 30 mcg/0.3 LNP-S, PF, 30 mcg/0.3 00:00:00 Urology mL dose mL dose ([employer]) ([employer]) COVID-19, mRNA, COVID-19, mRNA, 2020-07-28 Completed [place] [facility] LNP-S, PF, 30 mcg/0.3 LNP-S, PF, 30 mcg/0.3 00:00:00 Urology mL dose mL dose ([employer]) ([employer]) COVID-19, mRNA, COVID-19, mRNA, 2020-07-28 Completed [place] LNP-S, PF, 30 mcg/0.3 LNP-S, PF, 30 mcg/0.3 00:00:00 Urology mL dose mL dose ([employer]) ([employer]) COVID-19, mRNA, COVID-19, mRNA, 2020-07-28 Completed [place] [facility] LNP-S, PF, 30 mcg/0.3 LNP-S, PF, 30 mcg/0.3 00:00:00 Urology mL dose mL dose ([employer]) ([employer]) COVID-19, mRNA, COVID-19, mRNA, 2020-07-28 Completed [place] LNP-S, PF, 30 mcg/0.3 LNP-S, PF, 30 mcg/0.3 00:00:00 Urology mL dose mL dose ([employer]) ([employer]) COVID-19, mRNA, COVID-19, mRNA, 2020-07-28 Completed [place] [facility] LNP-S, PF, 30 mcg/0.3 LNP-S, PF, 30 mcg/0.3 00:00:00 Urology mL dose mL dose ([employer]) ([employer]) COVID-19, mRNA, COVID-19, mRNA, 2020-07-28 Completed [place] [facility] LNP-S, PF, 30 mcg/0.3 LNP-S, PF, 30 mcg/0.3 00:00:00 Urology mL dose mL dose ([employer]) ([facility]) COVID-19, mRNA, COVID-19, mRNA, 2020-07-28 Completed [place] LNP-S, PF, 30 mcg/0.3 LNP-S, PF, 30 mcg/0.3 00:00:00 Urology mL dose mL dose ([employer]) ([employer]) COVID-19, mRNA, COVID-19, mRNA, 2020-07-28 Completed [place] [facility] LNP-S, PF, 30 mcg/0.3 LNP-S, PF, 30 mcg/0.3 00:00:00 Urology mL dose mL dose ([employer]) ([facility]) COVID-19, mRNA, COVID-19, mRNA, 2020-07-28 Completed [place] LNP-S, PF, 30 mcg/0.3 LNP-S, PF, 30 mcg/0.3 00:00:00 Urology mL dose mL dose ([employer]) ([employer]) COVID-19, mRNA, COVID-19, mRNA, 2020-07-28 Completed [place] [facility] LNP-S, PF, 30 mcg/0.3 LNP-S, PF, 30 mcg/0.3 00:00:00 Urology mL dose mL dose ([employer]) ([employer]) COVID-19, mRNA, COVID-19, mRNA, 2020-07-28 Completed [place] [facility] LNP-S, PF, 30 mcg/0.3 LNP-S, PF, 30 mcg/0.3 00:00:00 Urology mL dose mL dose ([employer]) ([employer]) COVID-19, mRNA, COVID-19, mRNA, 2020-07-28 Completed [place] [facility] LNP-S, PF, 30 mcg/0.3 LNP-S, PF, 30 mcg/0.3 00:00:00 Urology mL dose mL dose ([employer]) ([employer]) COVID-19, mRNA, COVID-19, mRNA, 2020-07-28 Completed [place] [facility] LNP-S, PF, 30 mcg/0.3 LNP-S, PF, 30 mcg/0.3 00:00:00 Urology mL dose mL dose ([employer]) ([facility]) COVID-19, mRNA, COVID-19, mRNA, 2020-07-28 Completed [place] [facility] LNP-S, PF, 30 mcg/0.3 LNP-S, PF, 30 mcg/0.3 00:00:00 Urology mL dose mL dose ([employer]) ([employer]) COVID-19, mRNA, COVID-19, mRNA, 2020-07-28 Completed [place] [facility] LNP-S, PF, 30 mcg/0.3 LNP-S, PF, 30 mcg/0.3 00:00:00 Urology mL dose mL dose ([employer]) ([employer]) COVID-19, mRNA, COVID-19, mRNA, 2020-07-28 Completed [place] [facility] LNP-S, PF, 30 mcg/0.3 LNP-S, PF, 30 mcg/0.3 00:00:00 Urology mL dose mL dose ([employer]) ([employer]) COVID-19, mRNA, COVID-19, mRNA, 2020-07-28 Completed [place] [facility] LNP-S, PF, 30 mcg/0.3 LNP-S, PF, 30 mcg/0.3 00:00:00 Urology mL dose mL dose ([employer]) ([employer]) COVID-19, mRNA, COVID-19, mRNA, 2020-07-28 Completed [place] [facility] LNP-S, PF, 30 mcg/0.3 LNP-S, PF, 30 mcg/0.3 00:00:00 Urology mL dose mL dose ([employer]) ([employer]) COVID-19, mRNA, COVID-19, mRNA, 2020-07-28 Completed [place] [facility] LNP-S, PF, 30 mcg/0.3 LNP-S, PF, 30 mcg/0.3 00:00:00 Urology mL dose mL dose ([employer]) ([employer]) COVID-19, mRNA, COVID-19, mRNA, 2020-07-07 Completed [place] [facility] LNP-S, PF, 30 mcg/0.3 LNP-S, PF, 30 mcg/0.3 00:00:00 Urology mL dose mL dose ([employer]) ([employer]) COVID-19, mRNA, COVID-19, mRNA, 2020-07-07 Completed [place] [facility] LNP-S, PF, 30 mcg/0.3 LNP-S, PF, 30 mcg/0.3 00:00:00 Urology mL dose mL dose ([employer]) ([employer]) COVID-19, mRNA, COVID-19, mRNA, 2020-07-07 Completed [place] [facility] LNP-S, PF, 30 mcg/0.3 LNP-S, PF, 30 mcg/0.3 00:00:00 Urology mL dose mL dose ([employer]) ([employer]) COVID-19, mRNA, COVID-19, mRNA, 2020-07-07 Completed [place] [facility] LNP-S, PF, 30 mcg/0.3 LNP-S, PF, 30 mcg/0.3 00:00:00 Urology mL dose mL dose ([employer]) ([employer]) COVID-19, mRNA, COVID-19, mRNA, 2020-07-07 Completed [place] [facility] LNP-S, PF, 30 mcg/0.3 LNP-S, PF, 30 mcg/0.3 00:00:00 Urology mL dose mL dose ([employer]) ([employer]) COVID-19, mRNA, COVID-19, mRNA, 2020-07-07 Completed [place] [facility] LNP-S, PF, 30 mcg/0.3 LNP-S, PF, 30 mcg/0.3 00:00:00 Urology mL dose mL dose ([employer]) ([employer]) COVID-19, mRNA, COVID-19, mRNA, 2020-07-07 Completed [place] [facility] LNP-S, PF, 30 mcg/0.3 LNP-S, PF, 30 mcg/0.3 00:00:00 Urology mL dose mL dose ([employer]) ([facility]) COVID-19, mRNA, COVID-19, mRNA, 2020-07-07 Completed [place] [facility] LNP-S, PF, 30 mcg/0.3 LNP-S, PF, 30 mcg/0.3 00:00:00 Urology mL dose mL dose ([employer]) ([employer]) COVID-19, mRNA, COVID-19, mRNA, 2020-07-07 Completed [place] [facility] LNP-S, PF, 30 mcg/0.3 LNP-S, PF, 30 mcg/0.3 00:00:00 Urology mL dose mL dose ([employer]) ([employer]) COVID-19, mRNA, COVID-19, mRNA, 2020-07-07 Completed [place] [facility] LNP-S, PF, 30 mcg/0.3 LNP-S, PF, 30 mcg/0.3 00:00:00 Urology mL dose mL dose ([employer]) ([employer]) COVID-19, mRNA, COVID-19, mRNA, 2020-07-07 Completed [place] [facility] LNP-S, PF, 30 mcg/0.3 LNP-S, PF, 30 mcg/0.3 00:00:00 Urology mL dose mL dose ([employer]) ([employer]) COVID-19, mRNA, COVID-19, mRNA, 2020-07-07 Completed [place] [facility] LNP-S, PF, 30 mcg/0.3 LNP-S, PF, 30 mcg/0.3 00:00:00 Urology mL dose mL dose ([employer]) ([employer]) COVID-19, mRNA, COVID-19, mRNA, 2020-07-07 Completed [place] [facility] LNP-S, PF, 30 mcg/0.3 LNP-S, PF, 30 mcg/0.3 00:00:00 Urology mL dose mL dose ([employer]) ([employer]) COVID-19, mRNA, COVID-19, mRNA, 2020-07-07 Completed [place] [facility] LNP-S, PF, 30 mcg/0.3 LNP-S, PF, 30 mcg/0.3 00:00:00 Urology mL dose mL dose (Pfizer-BioNTech) ([employer]) COVID-19, mRNA, COVID-19, mRNA, 2020-07-07 Completed [place] [facility] LNP-S, PF, 30 mcg/0.3 LNP-S, PF, 30 mcg/0.3 00:00:00 Urology mL dose mL dose (Pfizer-BioNTech) ([employer]-BioAFINOS) COVID-19, mRNA, COVID-19, mRNA, 2020-07-07 Completed [place] [facility] LNP-S, PF, 30 mcg/0.3 LNP-S, PF, 30 mcg/0.3 00:00:00 Urology mL dose mL dose (Pfizer-BioNTech) ([employer]) COVID-19, mRNA, COVID-19, mRNA, 2020-07-07 Completed [place] LNP-S, PF, 30 mcg/0.3 LNP-S, PF, 30 mcg/0.3 00:00:00 Urology mL dose mL dose (Pfizer-BioNTech) ([employer]) COVID-19, mRNA, COVID-19, mRNA, 2020-07-07 Completed [place] LNP-S, PF, 30 mcg/0.3 LNP-S, PF, 30 mcg/0.3 00:00:00 Urology mL dose mL dose ([employer]) ([employer]) COVID-19, mRNA, COVID-19, mRNA, 2020-07-07 Completed [place] LNP-S, PF, 30 mcg/0.3 LNP-S, PF, 30 mcg/0.3 00:00:00 Urology mL dose mL dose (Pfizer-BioNTech) ([employer]-FraudMetrixNTAFINOS) COVID-19, mRNA, COVID-19, mRNA, 2020-07-07 Completed [place] LNP-S, PF, 30 mcg/0.3 LNP-S, PF, 30 mcg/0.3 00:00:00 Urology mL dose mL dose (SDI-Solution) (SDI-Solution) Vital Signs Vital Name Observation Time Observation Value Comments Source Height 2022-09-28 00:00:00 71 [in_i] [facility] Height 2022-08-08 00:00:00 71 [in_i] [facility] BMI (Body Mass 2022-08-08 00:00:00 26.8 kg/m2 [place] Index) Urology Body Weight 2022-08-08 00:00:00 192 [lb_av] [facility] Height 2022-08-01 00:00:00 71 [in_i] [facility] U[facility] BMI (Body Mass 2022-08-01 00:00:00 27 kg/m2 [place] Index) Urology Body Weight 2022-08-01 00:00:00 193.8 [lb_av] [facility] Height 2022-07-25 00:00:00 71 [in_i] [facility] BMI (Body Mass 2022-07-25 00:00:00 26.7 kg/m2 [place] Index) Urology Body Weight 2022-07-25 00:00:00 191.2 [lb_av] [facility] Height 2022-07-18 00:00:00 71 [in_i] [facility] BMI (Body Mass 2022-07-18 00:00:00 26.8 kg/m2 [place] Index) Urology Body Weight 2022-07-18 00:00:00 192.4 [lb_av] [facility] Height 2022-07-11 00:00:00 71 [in_i] [facility] BMI (Body Mass 2022-07-11 00:00:00 26.8 kg/m2 [place] Index) Urology Body Weight 2022-07-11 00:00:00 192 [lb_av] [facility] Height 2022-07-04 00:00:00 71 [in_i] [facility] BMI (Body Mass 2022-07-04 00:00:00 26.5 kg/m2 [place] Index) Urology Body Weight 2022-07-04 00:00:00 190.2 [lb_av] [facility] Height 2022-06-20 00:00:00 71 [in_i] [facility] BMI (Body Mass 2022-06-20 00:00:00 26.6 kg/m2 [place] Index) Urology Body Weight 2022-06-20 00:00:00 190.8 [lb_av] [facility] Height 2022-06-14 00:00:00 71 [in_i] [facility] BMI (Body Mass 2022-06-14 00:00:00 26.7 kg/m2 [place] Index) Urology Body Weight 2022-06-14 00:00:00 191.2 [lb_av] [facility] Height 2022-05-18 00:00:00 71 [in_i] [facility] Height 2022-04-25 00:00:00 71 [in_i] [facility] BP Diastolic 2022-04-25 00:00:00 72 mm[Hg] [facility] BMI (Body Mass 2022-04-25 00:00:00 26.5 kg/m2 [place] [facility] Index) Urology BP Systolic 2022-04-25 00:00:00 129 mm[Hg] [facility] Body Weight 2022-04-25 00:00:00 190 [lb_av] [facility] Height 2022 00:00:00 71 [in_i] [facility] BP Diastolic 2021-12-12 00:00:00 68 mm[Hg] [facility] Height 2021-12-12 00:00:00 71 [in_i] [facility] BMI (Body Mass 2021-12-12 00:00:00 25.8 kg/m2 [place] [facility] Index) Urology BP Systolic 2021-12-12 00:00:00 132 mm[Hg] [facility] Body Weight 2021-12-12 00:00:00 185 [lb_av] [facility] Systolic blood 2022-04-02 15:38:00 144 mm[Hg] [facility] pressure Diastolic blood 2022-04-02 15:38:00 77 mm[Hg] [facility] pressure Heart rate 2022-04-02 15:38:00 59 /min [facility] Respiratory rate 2022-04-02 15:38:00 12 /min [facility] Body height 2022-04-02 15:38:[address] [facility] Body weight 2022-04-02 15:38:[address] [facility] BMI 2022-04-02 15:38:00 25.77 kg/m2 [facility] Oxygen saturation in 2022-04-02 15:38:00 97 /min [facility] Arterial blood by Pulse oximetry Procedures Procedure Date / Time Performed Performing Clinician Sourc e DEXA 2022-04-25 00:00:00 [facility] Urology ECG 12-LEAD 2022-04-02 15:57:00 Alirio Ivy Ho spital MRI LUMBAR SPINE WO 2022-02-21 17:37:16 [facility], Ian [facility] CONTRAST MRI THORACIC SPINE WO 2022-02-21 17:10:10 [facility] CONTRAST MRI CERVICAL SPINE WO 2022-02-21 16:42:00 [facility] CONTRAST CT LUMBAR SPINE WO 2022-02-21 15:59:35 Ian Elliott [facility] CONTRAST XR CERVICAL SPINE 2022-02-21 15:59:09 Ian Elliott [facility] COMPLETE W FLEX EXT XR LUMBAR SPINE 2022-02-21 15:58:49 Ian Elliott [facility] H ospital COMPLETE W BENDING MRI, prostate, w/wo 2022 00:00:00 [facility] contrast Urology Diagnostic Colonoscopy 2016-06-10 00:00:00 [place] [facility] GEN- Laminectomy [facility] MUSCU-Back Surgery [facility] Urology Procedure on Tongue [facility] o Urology MUSCU- Shoulder Surgery [facility] U[facility] Plan of Care Planned Activity Planned Date Details Comments Source Future Scheduled Test 2022-11-17 [facility] 12:36:42 malignant neoplasm of colon (procedure) [code = 339186020] Future Scheduled Test 2022-11-17 [facility] 12:36:42 malignant neoplasm of colon (procedure) [code = 514964648] Future Scheduled Test 2022-11-17 [facility] 12:36:42 malignant neoplasm of colon (procedure) [code = 627850791] Future Scheduled Test 2022-11-17 Hepatitis C screening [facility] 12:36:42 (procedure) [code = 897110331] Future Scheduled Test 2022-11-17 SHINGLES VACCINES (1 [facility] 12:36:42 of 2) [code = SHINGLES VACCINES (1 of 2)] Future Scheduled Test 2022-11-17 COVID-19 VACCINE (4 - [facility] 12:36:42 Pfizer series) [code = COVID-19 VACCINE (4 - Pfizer series)] Future Scheduled Test 2022-11-17 65+ PNEUMOCOCCAL [facility] 12:36:42 VACCINE (2 - PCV) [code = 65+ PNEUMOCOCCAL VACCINE (2 - PCV)] Future Scheduled Test 2022-11-17 INFLUENZA VACCINE [facility] 12:36:42 [code = INFLUENZA VACCINE] Future Scheduled Test 2022-11-17 [facility] 12:36:42 malignant neoplasm of colon (procedure) [code = 745035906] Future Scheduled Test 2022-11-17 [facility] 12:36:42 malignant neoplasm of colon (procedure) [code = 953194187] Diagnostic Test 2022-08-23 testosterone, total, [facility] Pending 00:00:00 serum [code = Urology testosterone, total, serum] Diagnostic Test 2022-08-23 urinalysis, dipstick [facility] Pending 00:00:00 [code = urinalysis, Urology dipstick] Diagnostic Test 2022-08-23 PSA, serum or plasma [facility] Pending 00:00:00 [code = PSA, serum or Urolog y plasma] Future Appointment 2023-02-15 Aryan Shaver, [address] [facility] 15:15:00 Jose Alvarenga , [place] [address] Future Appointment 2022-12-01 Mateus Casillas 00:00:00 [address] [facility] [address]; , [place] [address] Encounters Start End Encounter Admission Attending Care Care Encounter Source Date/Time Date/Time Type Type Clinicians Facility Department ID 2022-09-28 2022-09-28 Aryan Marie [facility] [place] [id number] [employer] 00:00:00 00:00:00 Alice Shaver MD: Bonilla david [address] [facility] [place] [facility] [place], [place] [address] , Ph. 2022-08-29 2022-08-29 Outpatient Goldfarb_R [facility] [place] [place] [address] [employer] 00:00:00 00:00:00 [id number] [facility] 2022-08-29 2022-08-29 Outpatient Goldfarb_R [facility] [place] [address] [employer] 00:00:00 00:00:00 [id number] [facility] 2022-08-23 2022-08-23 Uli [facility] [place] [id number] [facility] 00:00:00 00:00:00 Bonilla Jimenez MD: [address] [facility] [address], [place] [address] , Ph. 2022-08-21 2022-08-21 Outpatient Goldfarb_R [facility] U [address] [employer] 00:00:00 00:00:00 [id number] [facility] 2022-08-14 2022-08-14 [facility] [place] - [id number] 7 [employer] 00:00:00 00:00:00 Alice Shaver MD: Bonilla david [address] [facility] [facility] [place], [place] [address] , Ph. 2022-08-10 2022-08-10 Outpatient Goldfarb_R [facility] U [address] [employer] 00:00:00 00:00:00 [id number] [facility] 2022-08-10 2022-08-10 Outpatient Goldfarb_R [facility] U [address] [employer] 00:00:00 00:00:00 [id number] [facility] 2022-08-10 2022-08-10 Outpatient Goldfarb_R [facility] U [address] [employer] 00:00:00 00:00:00 [id number] [facility] 2022-08-10 2022-08-10 Outpatient Goldfarb_R HMU HMU [address] [employer] 00:00:00 00:00:00 [id number] [facility] 2022-08-08 2022-08-08 Fantasma [facility] [place] - [id number] [facility] 00:00:00 00:00:00 Duke Velasco MD: ro Urolo gy 4[address] [facility] [place] [facility] [place] [address] , Ph. 2022-08-02 2022-08-02 Outpatient Goldfarb_R [facility] U [address] [employer] 00:00:00 00:00:00 [id number] [facility] 2022-08-02 2022-08-02 Outpatient Goldfarb_R [facility] U [address] [employer] 00:00:00 00:00:00 [id number] [facility] 2022-08-02 2022-08-02 Outpatient Goldfarb_R [facility] U [address] [employer] 00:00:00 00:00:00 [id number] [facility] 2022-08-02 2022-08-02 Outpatient Goldfarb_R [facility] U [address] [employer] 00:00:00 00:00:00 [id number] [facility] 2022-08-02 2022-08-02 Outpatient Goldfarb_R [facility] U [address] [employer] 00:00:00 00:00:00 [id number] [facility] 2022-08-02 2022-08-02 Outpatient Goldfarb_R [facility] U [address] [employer] 00:00:00 00:00:00 [id number] [facility] 2022-08-01 2022-08-01 Fantasma [facility] [place] - [id number] [facility] 00:00:00 00:00:00 Duke Velasco MD: [facility] Urolo gy [address] Urology [facility], [place] [address] , Ph. 2022-07-31 2022-07-31 Outpatient Goldfarb_R [facility] [place] [address] [employer] 00:00:00 00:00:00 [id number] [facility] 2022-07-30 2022-07-30 Outpatient Goldfarb_R [facility] [place] [address] [employer] 00:00:00 00:00:00 [id number] [facility] 2022-07-25 2022-07-25 Fantasma [facility] [place] [id number] [place] 00:00:00 00:00:00 Duke Velasco MD: [facility] U[facility] gy [address] U[facility], [place] [address] , Ph. 2022-07-18 2022-07-18 Fantasma [facility] [place] [id number] [place] 00:00:00 00:00:00 Duke Velasco MD: [facility] U[facility] gy [address] U[facility], [place] [address] , Ph. 2022-07-11 2022-07-11 Fantasma [facility] [place] [id number] [place] 00:00:00 00:00:00 Duke Velasco MD: [facility] U[facility] gy [address] Urology [facility], [place] [address] , Ph. 2022-07-04 2022-07-04 Fantasma [facility] [place] [id number] [place] 00:00:00 00:00:00 Duke Velasco MD: [facility] U[facility] gy [address] Urology [facility], [place] [address] , Ph. 2022-06-29 2022-06-29 Outpatient Goldfarb_R [facility] [place] [address] [employer] 00:00:00 00:00:00 [id number] [facility] 2022-06-29 2022-06-29 Outpatient Goldfarb_R [facility] U [address] [employer] 00:00:00 00:00:00 [id number] [facility] 2022-06-29 2022-06-29 Outpatient Goldfarb_R HMU HMU [address] [employer] 00:00:00 00:00:00 [id number] [facility] 2022-06-29 2022-06-29 Outpatient Goldfarb_R [facility] U [address] [employer] 00:00:00 00:00:00 [id number] [facility] 2022-06-28 2022-06-28 Fantasma [facility] [place] [facility] [id number] [facility] 00:00:00 00:00:00 Duke Velasco MD: [facility] U[facility]o gy [address] [place] [address] , Ph. 2022-06-27 2022-06-27 Fantasma [facility] [place] [id number] [facility] 00:00:00 00:00:00 Duke Velasco MD: [facility] U[facility] gy [address] Urology [facility], [place] [address] , Ph. 2022-06-20 2022-06-20 Fantasma [facility] [place] - [id number] [facility] 00:00:00 00:00:00 Duke Velasco MD: [facility] U[facility] gy [address] Urology [facility], [place] [address] , Ph. 2022-06-18 2022-06-18 Outpatient Goldfarb_R [facility] U [address] [employer] 00:00:00 00:00:00 [id number] [facility] 2022-06-18 2022-06-18 Outpatient Goldfarb_R [facility] U [address] [employer] 00:00:00 00:00:00 [id number] [facility] 2022-06-18 2022-06-18 Outpatient Goldfarb_R [facility] U [address] [employer] 00:00:00 00:00:00 [id number] [facility] 2022-06-14 2022-06-14 Fantasma [facility] [place] - [id number] H [place] 00:00:00 00:00:00 Duke Velasco MD: ro Urolo gy 4[address] Urology LORIN Garcia - [facility] Missy, [place] [address] , Ph. 2022-06-07 2022-06-07 Outpatient Goldfarb_R [facility] U [address] [employer] 00:00:00 00:00:00 [id number] [facility] 2022-05-24 2022-05-24 Outpatient Goldfarb_R [facility] U [address] [employer] 00:00:00 00:00:00 [id number] [facility] 2022-05-23 2022-05-23 Outpatient Goldfarb_R [facility] U [address] [employer] 00:00:00 00:00:00 [id number] [facility] 2022-05-18 2022-05-18 Outpatient Goldfarb_R [facility] U [address] [employer] 00:00:00 00:00:00 [id number] [facility] 2022-05-18 2022-05-18 [facility] [place] - [id number] Alisha crowe 00:00:00 00:00:00 Bonilla Jimenez MD: 4223 ro Urology Jose, Urology [facility], - [address] [place] [address] , Ph. 2022-05-08 2022-05-08 Outpatient Goldfarb_R [facility] U [address] [employer] 00:00:00 00:00:00 [id number] [facility] 2022-05-01 2022-05-01 Outpatient Goldfarb_R [facility] U [address] [employer] 00:00:00 00:00:00 [id number] [facility] 2022-04-30 2022-04-30 Outpatient Goldfarb_R [facility] U [address] [employer] 00:00:00 00:00:00 [id number] [facility] 2022-04-26 2022-04-26 Outpatient Goldfarb_R [facility] U [address] [employer] 00:00:00 00:00:00 [id number] [facility] 2022-04-25 2022-04-25 Outpatient Goldfarb_R [facility] [address] [employer] 00:00:00 00:00:00 [id number] [facility] 2022-04-25 2022-04-25 Uli [facility] [place] - [id number] [facility] 00:00:00 00:00:00 Bonilla Jimenez MD: 6560 [facility] - [address], [place] [address] , Ph. 2022-04-18 2022-04-18 Outpatient Goldfarb_R [facility] [address] [employer] 00:00:00 00:00:00 [id number] [facility] 2022-04-13 2022-04-13 Uli [facility] - [id number] H [facility] 00:00:00 00:00:00 Bonilla Jmienez MD: 4219 [facility] Garcia [facility] [address], - [facility] [address] , Ph. 2022-04-02 2022-04-02 Office Alirio Ivy 1.2.840.1 [id number] [facility] 10:00:00 11:20:45 Visit Ali [address]809.1.[address] 3.430.2.7 Hospit a .3.187963 l .8 2022-04-02 2022-04-02 Outpatient MICHAEL ALIRIO [facility] [id number] [employer] 00:00:00 00:00:[address] 2022-04-02 2022-04-02 Travel 1.2.840.1 1.2.686.619 [id number] [facility] 00:00:00 00:00:[address] 3.430.2.7 0.2.7.3.698 Ho spita .3.926878 084.8 l .8 2022-03-21 2022-03-21 Telephone Alirio Ivy 1.2.840.6 [id number] [facility] 00:00:00 00:00:[address] 3.430.2.7 Hospit a .3.679412 l .8 2022-03-15 2022-03-15 Travel 1.2.840.1 1.2.020.429 2618 [id number] [facility] 00:00:00 00:00:[address] 3.430.2.7 0.2.7.3.698 Ho spita .3.732295 084.8 l .8 2022-02-21 2022-02-21 Outpatient GIST, [facility] [id number] [employer] 00:00:00 00:00:00 IAN Urbina Method i 2022-02-21 2022-02-21 Outpatient GIST, [facility] [id number] [employer] 00:00:00 00:00:00 IAN Hill Method i 2022-02-21 2022-02-21 Outpatient GIST, [facility] [id number] [employer] 00:00:00 00:00:00 IAN Jimenez Method i 2022-02-21 2022-02-21 Outpatient GIST, [facility] [id number] [employer] 00:00:00 00:00:00 IAN Parks Method i 2022-02-21 2022-02-21 Outpatient GIST, [facility] [id number] [employer] 00:00:00 00:00:00 IAN Castaneda Method i 2022-02-21 2022-02-21 Outpatient GIST, [facility] [id number] [employer] 00:00:00 00:00:00 IAN Blount Method i 2022-02-13 2022-02-13 [facility] Gist, 1.2.840.1 [id number] Methodi 00:00:00 00:00:00 Thomas Mays 68869.1.1 000 s t 3.430.2.7 Hospit a .3.885489 l .8 2022 2022 Outpatient Goldfarb_R [facility] [address] [employer] 00:00:00 00:00:00 [id number] [facility] 2022 2022 Uli U [place] [facility] [id number] [facility] 00:00:00 00:00:00 Bonilla Jimenez MD: 6560 [facility] Jeniffer [facility] LORIN [facility] [address], [place] [address] , Ph. 2022 2022 Outpatient Tony, [facility] U [id number] 00:00:00 00:00:00 Uli [id number] 2022-01-27 2022-01-27 Outpatient Goldfarb_R [facility] U [address] [employer] 00:00:00 00:00:00 [id number] [facility] 2022-01-23 2022-01-23 Outpatient Goldfarb_R [facility] U [address] [employer] 00:00:00 00:00:00 [id number] [facility] 2022-01-18 2022-01-18 Outpatient Goldfarb_R [facility] U [address] [employer] 00:00:00 00:00:00 [id number] [facility] 2022-01-11 2022-01-11 Outpatient Goldfarb_R [facility] U [address] [employer] 00:00:00 00:00:00 [id number] [facility] 2021-12-29 2021-12-29 Outpatient Goldfarb_R [facility] U [address] [employer] 08:00:00 08:00:00 [id number] [facility] 2021-12-29 2021-12-29 Outpatient Tony, [facility] U [id number] 00:00:00 00:00:00 Uli [id number] 2021-12-29 2021-12-29 Uli [facility] [place] - [id number] [facility] 00:00:00 00:00:00 Bonilla Jimenez MD: 42[address] [facility] Jose [address], - U [facility] [address] , Ph. 2021-12-22 2021-12-22 Outpatient Goldfarb_R U [facility] [address] [employer] 11:46:00 11:46:00 [id number] [facility] 2021-12-18 2021-12-18 Outpatient Goldfarb_R U [facility] [address] [employer] 09:28:00 09:28:00 [facility] 2021-12-12 2021-12-12 Outpatient Goldfarb_R [facility] [address] [employer] 12:46:00 12:46:00 [facility] 2021-12-12 2021-12-12 Uli [facility] [place] - [id number] Alisha crowe 00:00:00 00:00:00 Tony, Crystal Everett pitt MD: 6560 [facility] [address], [place] [address] , Ph. 2021-12-12 2021-12-12 Outpatient Tony Cheryl [facility] [id number] 00:00:00 00:00:00 Uli [id number] 2021-11-23 2021-11-23 Outpatient Goldfarb_R [facility] [address] [employer] 03:19:00 03:19:00 [facility] 2021-11-20 2021-11-20 Outpatient Goldfarb_R [facility] [address] [employer] 02:14:00 02:14:00 [facility] 2020-12-08 2020-12-08 Outpatient [facility], [facility] [id number] [employer] 00:00:00 00:00:00 SUSY-GIANNA [address] Results Test Description Test Time Test Comments Results Result Comments Source Urinalysis macro (dipstick) panel - Urine 2022-07-04 11:08:0 0 Test Item Value Reference Range Interpretation Comme nts leukocytes (test code = negative neg leukocytes) urobilinogen (test code = 0.2 E.U./dL sm amt (.5-1mg/dL) urobilinogen) protein (test code = negative See_Comment [Autom ated message] The protein) system which ge nerated this result tra nsmitted reference range : <=150 mg/d. The refer ence range was not used to interpret this result as normal/abnormal . pH (test code = pH) 5.0 4.5-8 blood (test code = blood) trace-lysed See_Comment [ Automated message] The system which ge nerated this result tra nsmitted reference range : <=3 RBC. The reference r phi was not used to int erpret this result as normal/abnormal . specific gravity (test code 1.015 1.005-1.025 = specific gravity) ketone (test code = ketone) negative none bilirubin (test code = negative neg bilirubin) glucose (test code = negative See_Comment [Autom ated message] The glucose) system which nerated this result tra nsmitted reference range : <=130 mg/d. The refer ence range was not used to interpret this result as normal/abnormal . color (test code = color) yellow yellow clarity (test code = clear clear or cloudy clarity) nitrite (test code = negative neg nitrite) [facility] (dipstick) panel - [id number] 11:08:00 Test Item Value Reference Range Interpretation Comments leukocytes (test code negative neg = leukocytes) urobilinogen (test 0.2 E.U./dL sm amt (.5-1mg/dL) code = urobilinogen) protein (test code = negative See_Comment [Autom ated protein) message] The sy stem which generated this result transmitted reference range : <=150 mg/d. The reference range was not used to interpret this result as normal/abnormal . pH (test code = pH) 5.0 4.5-8 blood (test code = trace-lysed See_Comment [Automat ed blood) message] The sy stem which generated this result transmitted reference range : <=3 RBC. The reference range was not used to interpret this result as normal/abnormal . specific gravity 1.015 1.005-1.025 (test code = specific gravity) ketone (test code = negative none ketone) bilirubin (test code negative neg = bilirubin) glucose (test code = negative See_Comment [Autom ated glucose) message] The sy stem which generated this result transmitted reference range : <=130 mg/d. The reference range was not used to interpret this result as normal/abnormal . color (test code = yellow yellow color) clarity (test code = clear clear or cloudy clarity) nitrite (test code = negative neg nitrite) [facility] (dipstick) panel - [id number] 11:08:00 Test Item Value Reference Range Interpretation Comments leukocytes (test code negative neg = leukocytes) urobilinogen (test 0.2 E.U./dL sm amt (.5-1mg/dL) code = urobilinogen) protein (test code = negative See_Comment [Autom ated protein) message] The sy stem which generated this result transmitted reference range : <=150 mg/d. The reference range was not used to interpret this result as normal/abnormal . pH (test code = pH) 5.0 4.5-8 blood (test code = trace-lysed See_Comment [Automat ed blood) message] The sy stem which generated this result transmitted reference range : <=3 RBC. The reference range was not used to interpret this result as normal/abnormal . specific gravity 1.015 1.005-1.025 (test code = specific gravity) ketone (test code = negative none ketone) bilirubin (test code negative neg = bilirubin) glucose (test code = negative See_Comment [Autom ated glucose) message] The sy stem which generated this result transmitted reference range : <=130 mg/d. The reference range was not used to interpret this result as normal/abnormal . color (test code = yellow yellow color) clarity (test code = clear clear or cloudy clarity) nitrite (test code = negative neg nitrite) [facility] macro (dipstick) panel - [id number] 11:08:00 Test Item Value Reference Range Interpretation Comments leukocytes (test code negative neg = leukocytes) urobilinogen (test 0.2 E.U./dL sm amt (.5-1mg/dL) code = urobilinogen) protein (test code = negative See_Comment [Autom ated protein) message] The sy stem which generated this result transmitted reference range : <=150 mg/d. The reference range was not used to interpret this result as normal/abnormal . pH (test code = pH) 5.0 4.5-8 blood (test code = trace-lysed See_Comment [Automat ed blood) message] The sy stem which generated this result transmitted reference range : <=3 RBC. The reference range was not used to interpret this result as normal/abnormal . specific gravity 1.015 1.005-1.025 (test code = specific gravity) ketone (test code = negative none ketone) bilirubin (test code negative neg = bilirubin) glucose (test code = negative See_Comment [Autom ated glucose) message] The sy stem which generated this result transmitted reference range : <=130 mg/d. The reference range was not used to interpret this result as normal/abnormal . color (test code = yellow yellow color) clarity (test code = clear clear or cloudy clarity) nitrite (test code = negative neg nitrite) [facility]rologyUr[facility] macro (dipstick) panel - [id number] 11:08:00 Test Item Value Reference Range Interpretation Comments leukocytes (test code negative neg = leukocytes) urobilinogen (test 0.2 E.U./dL sm amt (.5-1mg/dL) code = urobilinogen) protein (test code = negative See_Comment [Autom ated protein) message] The sy stem which generated this result transmitted reference range : <=150 mg/d. The reference range was not used to interpret this result as normal/abnormal . pH (test code = pH) 5.0 4.5-8 blood (test code = trace-lysed See_Comment [Automat ed blood) message] The sy stem which generated this result transmitted reference range : <=3 RBC. The reference range was not used to interpret this result as normal/abnormal . specific gravity 1.015 1.005-1.025 (test code = specific gravity) ketone (test code = negative none ketone) bilirubin (test code negative neg = bilirubin) glucose (test code = negative See_Comment [Autom ated glucose) message] The sy stem which generated this result transmitted reference range : <=130 mg/d. The reference range was not used to interpret this result as normal/abnormal . color (test code = yellow yellow color) clarity (test code = clear clear or cloudy clarity) nitrite (test code = negative neg nitrite) [facility] UrologyPSA, serum or [id number] 00:00:00 Test Item Value Reference Range Interpretation Comments PSA testosterone (test code = PSA testosterone) PSA_1 (test code = PSA_1) 0.31 testosterone_1 (test code = 9.80 testosterone_1) [facility]rologyPS[facility], serum or [id number] 00:00:00 Test Item Value Reference Range Interpretation Comments PSA testosterone (test code = PSA testosterone) PSA_1 (test code = PSA_1) 0.31 testosterone_1 (test code = 9.80 testosterone_1) [facility]rologyPS[facility], serum or [id number] 00:00:00 Test Item Value Reference Range Interpretation Comments PSA testosterone (test code = PSA testosterone) PSA_1 (test code = PSA_1) 0.31 testosterone_1 (test code = 9.80 testosterone_1) [facility]rologyPS[facility], serum or [id number] 00:00:00 Test Item Value Reference Range Interpretation Comments PSA testosterone (test code = PSA testosterone) PSA_1 (test code = PSA_1) 0.31 testosterone_1 (test code = 9.80 testosterone_1) [facility]rologyUrinalysis macro (dipstick) panel - [id number] 11:36:00 Test Item Value Reference Range Interpretation Comments leukocytes (test code negative neg = leukocytes) urobilinogen (test 0.2 E.U./dL sm amt (.5-1mg/dL) code = urobilinogen) protein (test code = negative See_Comment [Autom ated protein) message] The sy stem which generated this result transmitted reference range : <=150 mg/d. The reference range was not used to interpret this result as normal/abnormal . pH (test code = pH) 7.0 4.5-8 blood (test code = moderate See_Comment [Automat ed blood) message] The sy stem which generated this result transmitted reference range : <=3 RBC. The reference range was not used to interpret this result as normal/abnormal . specific gravity 1.020 1.005-1.025 (test code = specific gravity) ketone (test code = negative none ketone) bilirubin (test code negative neg = bilirubin) glucose (test code = 100 mg/dL See_Comment [Autom ated glucose) message] The sy stem which generated this result transmitted reference range : <=130 mg/d. The reference range was not used to interpret this result as normal/abnormal . color (test code = yellow yellow color) clarity (test code = clear clear or cloudy clarity) nitrite (test code = negative neg nitrite) [facility]rologyUrinal[facility] macro (dipstick) panel - [id number] 11:36:00 Test Item Value Reference Range Interpretation Comments leukocytes (test code negative neg = leukocytes) urobilinogen (test 0.2 E.U./dL sm amt (.5-1mg/dL) code = urobilinogen) protein (test code = negative See_Comment [Autom ated protein) message] The sy stem which generated this result transmitted reference range : <=150 mg/d. The reference range was not used to interpret this result as normal/abnormal . pH (test code = pH) 7.0 4.5-8 blood (test code = moderate See_Comment [Automat ed blood) message] The sy stem which generated this result transmitted reference range : <=3 RBC. The reference range was not used to interpret this result as normal/abnormal . specific gravity 1.020 1.005-1.025 (test code = specific gravity) ketone (test code = negative none ketone) bilirubin (test code negative neg = bilirubin) glucose (test code = 100 mg/dL See_Comment [Autom ated glucose) message] The sy stem which generated this result transmitted reference range : <=130 mg/d. The reference range was not used to interpret this result as normal/abnormal . color (test code = yellow yellow color) clarity (test code = clear clear or cloudy clarity) nitrite (test code = negative neg nitrite) [facility] UrologyTestosterone [Mass/volume] in Serum or [id number] 00:00:00 Test Item Value Reference Range Interpretation Comments PSA testosterone (test code = PSA testosterone) testosterone_1 (test code = 482.61 testosterone_1) [facility] UrologyTestosterone [Mass/volume] in Serum or [id number] 00:00:00 Test Item Value Reference Range Interpretation Comments PSA testosterone (test code = PSA testosterone) testosterone_1 (test code = 482.61 testosterone_1) [facility] UrologyProstate Pathology biopsy [id number] 00:00:00Prostate BiopsySouth [facility] UrologyProstate Pathology biopsy [id number] 00:00:00 Prostate BiopsySouth [facility] UrologyUrinalysis macro (dipstick) panel - Urine 2021-12-12 11:14:00 Test Item Value Reference Range Interpretation Comments leukocytes (test code negative neg = leukocytes) urobilinogen (test 0.2 E.U./dL sm amt (.5-1mg/dL) code = urobilinogen) protein (test code = negative See_Comment [Autom ated protein) message] The sy stem which generated this result transmitted reference range : <=150 mg/d. The reference range was not used to interpret this result as normal/abnormal . pH (test code = pH) 5.5 4.5-8 blood (test code = small See_Comment [Automat ed blood) message] The sy stem which generated this result transmitted reference range : <=3 RBC. The reference range was not used to interpret this result as normal/abnormal . specific gravity 1.010 1.005-1.025 (test code = specific gravity) ketone (test code = negative none ketone) bilirubin (test code negative neg = bilirubin) glucose (test code = negative See_Comment [Autom ated glucose) message] The sy stem which generated this result transmitted reference range : <=130 mg/d. The reference range was not used to interpret this result as normal/abnormal . color (test code = yellow yellow color) clarity (test code = clear clear or cloudy clarity) nitrite (test code = negative neg nitrite) [facility]rologyUrinalysis macro (dipstick) panel - [id number] 11:14:00 Test Item Value Reference Range Interpretation Comments leukocytes (test code negative neg = leukocytes) urobilinogen (test 0.2 E.U./dL sm amt (.5-1mg/dL) code = urobilinogen) protein (test code = negative See_Comment [Autom ated protein) message] The sy stem which generated this result transmitted reference range : <=150 mg/d. The reference range was not used to interpret this result as normal/abnormal . pH (test code = pH) 5.5 4.5-8 blood (test code = small See_Comment [Automat ed blood) message] The sy stem which generated this result transmitted reference range : <=3 RBC. The reference range was not used to interpret this result as normal/abnormal . specific gravity 1.010 1.005-1.025 (test code = specific gravity) ketone (test code = negative none ketone) bilirubin (test code negative neg = bilirubin) glucose (test code = negative See_Comment [Autom ated glucose) message] The sy stem which generated this result transmitted reference range : <=130 mg/d. The reference range was not used to interpret this result as normal/abnormal . color (test code = yellow yellow color) clarity (test code = clear clear or cloudy clarity) nitrite (test code = negative neg nitrite) [facility] UrologyPSA, serum or [id number] 00:00:00 Test Item Value Reference Range Interpretation Comments PSA testosterone (test code = PSA testosterone) PSA_1 (test code = PSA_1) 7.45 [facility] Urologyculture, urine + [id number] 00:00:00[facility] CultureSouth [facility]
[2022-11-18] MEDS ORDERED: PANTOPRAZOLE 40 MG INJ ONE (23:25)
[2022-11-18 23:56] LABS: Protime INR 1.15
[2022-11-18 23:59] LABS: Absolute Lymphocytes (CBC) 1.4 K/uL (0.7-4.9); Hematocrit 22.1 % (39.6-49.0); Lymphocytes % 18.5 % (15.3-44.8); MCV 92.6 fL (80-100); MPV 7.4 fL (7.6-11.3); RBC Red Blood Cell Count 2.39 M/uL (4.33-5.43)
[2022-11-19 00:14] LABS: Albumin 2.7 g/dL (3.4-5.0); Bilirubin Total 0.3 mg/dL (0.2-1.0); Potassium 3.9 mEq/L (3.5-5.1)
[2022-11-19] MEDS ORDERED: NA CHLORIDE 0.9% 250 ML ONE ×2 (01:20→02:46)
--- NOTE | 2022-11-19 02:01 | ER ---
Nurse's Notes [facility] Name: Uli Greenwood Age: 77 yrs Sex: Male : 1945 Arrival Date: 11/18/2022 Time: 23:03 Bed 4 Private MD: Diagnosis: Anemia, unspecified;GI Bleed/ Gastrointestinal hemorrhage, unspecified Presentation: 11/18 23:07 Chief complaint: EMS states: Pt began having dark tarry stools around 0930, his last jb4 blood BM was 1630. Coronavirus screen: At this time, the client does not indicate any symptoms associated with coronavirus-19. Ebola Screen: No symptoms or risks identified at this time. Initial Sepsis Screen: Does the patient meet any 2 criteria? No. Patient's initial sepsis screen is negative. Does the patient have a suspected source of infection? No. Patient's initial sepsis screen is negative. Risk Assessment: Do you want to hurt yourself or someone else? Patient reports no desire to harm self or others. Onset of symptoms was November 18, 2022. Transition of care: patient was not received from another setting of care. 23:07 Method Of Arrival: EMS: [facility] jb4 23:07 Acuity: KAYCEE 3 jb4 Historical: - Allergies: 23:10 No Known Allergies; jb4 - PMHx: 23:10 HTN; High cholesterol; prostate CA; Non-Hodgkins Lymphoma; jb4 - PSHx: 23:10 Spinal cord stimulator; jb4 - Immunization history:: Adult Immunizations up to date, Pneumococcal vaccine is up to date, Flu vaccine is up to date. - Social history:: Smoking status: Patient/guardian denies using tobacco, but has a distant history of tobacco abuse. Screenin:[facility] ED Fall Risk Assessment (Adult) History of falling in the last 3 months, jb4 including since admission No falls in past 3 months (0 pts) Confusion or Disorientation No (0 pts) Score/Fall Risk Level 0 - 2 = Low Risk. Abuse screen: Denies threats or abuse. Nutritional screening: No deficits noted. Tuberculosis screening: No symptoms or risk factors identified. Assessment: 23:12 General: Appears in no apparent distress. comfortable, Behavior is calm, cooperative, jb4 appropriate for age. Pain: Denies pain. Neuro: Level of Consciousness is awake, alert, obeys commands, Oriented to person, place, time, situation. Cardiovascular: Patient's skin is warm and dry. Respiratory: Airway is patent Respiratory effort is even, unlabored, Respiratory pattern is regular, symmetrical. GI: Reports bloody stool. : No signs and/or symptoms were reported regarding the genitourinary system. EENT: No signs and/or symptoms were reported regarding the EENT system. Derm: Skin is intact, Skin is pink, warm \T\ dry. Musculoskeletal: Circulation, motion, and sensation intact. Range of motion: intact in all extremities. 11/19 00:00 Neuro: Level of Consciousness is awake, alert, obeys commands, Oriented to person, rv place, time, situation. 01:00 Neuro: Level of Consciousness is awake, alert, obeys commands, Oriented to person, rv place, time, situation. Cardiovascular: Patient's skin is warm and dry. Rhythm is regular. 02:00 General: Appears. Neuro: Level of Consciousness is awake, alert, obeys commands, rv Oriented to person, place, time, situation. Respiratory: Airway is patent Respiratory effort is even, unlabored. 02:30 General:. Neuro: Level of Consciousness is awake, alert, obeys commands, Oriented to rv person, place, time, situation. Cardiovascular: Patient's skin is warm and dry. Rhythm is regular. Respiratory: Airway is patent Respiratory effort is Respiratory pattern is regular, symmetrical. 02:30 Reassessment: second unit of PRBC given to EMS. first unit still ongoing on transfer. rv Cardiovascular: Patient's skin is warm and dry. Rhythm is regular. Respiratory: Airway is patent Respiratory effort is even, unlabored. Vital Signs: 11/18 23:07 BP 102 / 51; Pulse 77; Resp 19; Temp 97.7(TE); Pulse Ox 99% on R/A; Weight 87.09 kg jb4 (R); Height 5 ft. 11 in. (R); Pain 0/10; 11/19 00:45 BP 96 / 42; Pulse 80; Resp 18; Pulse Ox 98% on R/A; rv 01:00 BP 87 / 46; Pulse 76; Resp 15; Pulse Ox 97% on R/A; rv 01:30 BP 81 / 45; Pulse 79; Resp 17; Pulse Ox 97% on R/A; rv 02:00 BP 96 / 43; Pulse 99; Resp 18; Pulse Ox 98% on R/A; rv 02:30 BP 89 / 38; Pulse 82; Resp 18; Temp 98.7; Pulse Ox 98% ; rv 0611 23:07 Body Mass Index 26.78 (87.09 kg, 180.34 cm) jb4 11/18 23:07 Pain Scale: Adult jb4 Verna Coma Score: 02:30 Eye Response: spontaneous(4). Motor Response: obeys commands(6). Verbal Response: rv oriented(5). Total: 15. ED Course: 11/18 23:07 Patient arrived in ED. jb4 23:08 Babak Huitron MD is Attending Physician. bs3 23:10 Triage completed. jb4 23:10 Arm band placed on right wrist. jb4 23:12 Patient has correct armband on for positive identification. Bed in low position. Call jb4 light in reach. Side rails up X 1. Client placed on continuous cardiac and pulse oximetry monitoring. NIBP monitoring applied. playground monitor on. 23:15 Kenneth Dumont, RN is Primary Nurse. jb4 23:28 Initial lab(s) drawn, by mo, sent to lab. T\T\S collected, blood band applied to patient. jw7 Missed attempt(s): 18 gauge in left antecubital area. Bleeding controlled, band aid applied, catheter tip intact. 23:28 PT-INR Sent. jw7 23:28 Type And Screen Sent. jw7 23:28 Comprehensive Metabolic Panel Sent. jw7 23:28 CBC with Diff Sent. jw7 23:34 EKG done, by ED staff, reviewed by Babak Huitron MD. jw7 11/19 00:00 No provider procedures requiring assistance completed. rv 00:00 Inserted saline lock: 20 gauge in left antecubital area, using aseptic technique. rv Patient transferred, IV remains in place. 00:24 Initiated transfer with Bonilla Yanez but was Declined due to capacity. rv1 00:25 Initiated transfer with Elsa Mustafa at [facility]. rv1 00:[address] Huitron with Dr. Perea for Doc to Doc. rv1 00:52 Consent for blood and/or blood product transfusion explained by staff, explained by rv physician, signed by patient. Administered Medications: 11/18 23:28 Drug: Pantoprazole IVP 40 mg Route: IVP; Site: left antecubital; jb4 11/19 01:06 Follow up: Response: No adverse reaction rv 11/18 23:49 Drug: NS 0.9% IV 500 ml Route: IV; Rate: 1 bolus; Site: right antecubital; rv 11/19 01:07 Follow up: IV Status: Completed infusion; IV Intake: 500ml rv Medication: 11/18 23:12 VIS not applicable for this client. jb4 11/19 01:40 Blood products: PRBCs X 1 unit given. See transfusion record. rv Intake: 01:07 IV: 500ml; Total: 500ml. rv Outcome: 02:01 ER care complete, transfer ordered by . bs3 02:55 [facility] [place]. rv 02:55 Condition: stable 02:55 Instructed on the need for transfer. 02:56 Patient left the ED. rv Signatures: Kenneth Dumont RN RN jb4 Rodri Colmenares RN RN rv Irma Hoover jw7 Babak Huitron MD MD bs3 Rosetta Simeon rv1 Corrections: (The following items were deleted from the chart) 01:48 01:43 Initiated transfer with Bonilla Yanez but was Declined due to capacity rv1 rv1 01:48 01:43 Initiated transfer with Elsa Mustafa at [facility] rv1 rv1
--- NOTE | 2022-11-19 02:01 | EDPHYS ---
Physician Documentation [facility] Name: Uli Greenwood Age: 77 yrs Sex: Male : 1945 Arrival Date: 11/18/2022 Time: 23:03 Bed 4 Private MD: ED Physician Babak Huitron HPI: 11/18 23:12 This 77 yrs old Male presents to ER via EMS with complaints of rectal bs3 bleeding. 23:12 77yo m hx of prostate ca sp radiation, htn presents with 2 episodes of dark stools bs3 today. Never happened before, nothing makes it better or worse the was able to drive to [place] but then had a second episode and therefore drove back home he notes a little bit of lightheadedness he does report that his primary care doctor noted that he was slightly anemic previously no fevers or chills chest pain shortness of breath or anything else bothering him no history of endoscopy. Historical: - Allergies: 23:10 No Known Allergies; jb4 - PMHx: 23:10 HTN; High cholesterol; prostate CA; Non-Hodgkins Lymphoma; jb4 - PSHx: 23:10 Spinal cord stimulator; jb4 - Immunization history:: Adult Immunizations up to date, Pneumococcal vaccine is up to date, Flu vaccine is up to date. - Social history:: Smoking status: Patient/guardian denies using tobacco, but has a distant history of tobacco abuse. ROS: 23:12 Constitutional: Negative for fever, chills bs3 23:12 All other systems are negative. Exam: 23:12 Constitutional: This is a well developed, well nourished patient who is awake, alert, bs3 and in no acute distress. Head/Face: Normocephalic, atraumatic. Eyes: Pupils equal round and reactive to light, extra-ocular motions intact. Lids and lashes normal. ENT: mmm, no posterior phyarngeal erythema Neck: Trachea midline, no thyromegaly, no neck stiffness Chest/axilla: Normal chest wall appearance and motion. Nontender with no deformity. No lesions are appreciated. Cardiovascular: Regular rate and rhythm with a normal S1 and S2. symmetric pulses in upper extremities Respiratory: Lungs have equal breath sounds bilaterally, clear to auscultation, no respiratory distress Abdomen/GI: Soft, non-tender, no rebound or guarding Back: Dark stool in rectal vault no active bleeding Skin: Warm, dry with normal turgor. Normal color with no rashes, no lesions, and no evidence of cellulitis. MS/ Extremity: Pulses equal, no cyanosis. Neurovascular intact. Full, normal range of motion. Neuro: Awake and alert, GCS 15, oriented to person, place, time, and situation. Cranial nerves II-XII grossly intact. Motor strength 5/5 in all extremities. Sensory grossly intact. Psych: Awake, alert, with orientation to person, place and time. Behavior, mood, and affect are within normal limits. Vital Signs: 23:07 BP 102 / 51; Pulse 77; Resp 19; Temp 97.7(TE); Pulse Ox 99% on R/A; Weight 87.09 kg jb4 (R); Height 5 ft. 11 in. (R); Pain 0/10; 11/19 00:45 BP 96 / 42; Pulse 80; Resp 18; Pulse Ox 98% on R/A; rv 01:00 BP 87 / 46; Pulse 76; Resp 15; Pulse Ox 97% on R/A; rv 01:30 BP 81 / 45; Pulse 79; Resp 17; Pulse Ox 97% on R/A; rv 02:00 BP 96 / 43; Pulse 99; Resp 18; Pulse Ox 98% on R/A; rv 02:30 BP 89 / 38; Pulse 82; Resp 18; Temp 98.7; Pulse Ox 98% ; rv 11/18 23:07 Body Mass Index 26.78 (87.09 kg, 180.34 cm) [facility] 11/18 23:07 Pain Scale: Adult [facility] Verna Coma Score: 02:30 Eye Response: spontaneous(4). Motor Response: obeys commands(6). Verbal Response: rv oriented(5). Total: 15. MDM: 11/18 23:08 Patient medically screened. bs3 23:12 Data reviewed: vital signs, nurses notes. ED course: Patient with likely upper GI bleed bs3 will place second IV will do serial exams we will start Protonix patient does not drink doubt varices will not start on octreotide no abdominal pain would not do CTA at this point in time. 11/19 00:15 ED course: Patient with symptomatic anemia we will transfuse we currently have no GI bs3 available here patient is requesting attempt to transfer to [facility] for patient preference we will transfer for GI we will give 1 unit of PRBCs. 02:00 ED course: pt with persistent low bp, will transfuse, pt accepted for transfer at [address] for GI and ICU. 02:07 ED course: EKG is normal sinus rhythm at [address] elevation or depression QTc 482 as bs3 interpreted by myself. 11/18 23:08 Order name: CBC with Diff; Complete Time: 00:04 bs3 11/18 23:08 Order name: Comprehensive Metabolic Panel; Complete Time: 00:57 bs3 11/18 23:08 Order name: Type And Screen bs3 11/18 23:08 Order name: PT-INR; Complete Time: 23:58 bs3 11/19 00:32 Order name: Packed RBC Leukored EDMS 11/19 01:03 Order name: Lactate w/ 2H reflex if indic.; Complete Time: 01:50 bs3 11/19 01:19 Order name: ABO/RH no charge; Complete Time: 01:37 EDMS 11/18 23:08 Order name: EKG - Nurse/Tech; Complete Time: 23:30 bs3 11/19 00:17 Order name: Consent for Blood Transfusion; Complete Time: 00:31 bs3 11/19 00:17 Order name: IV Saline Lock; Complete Time: 00:31 bs3 Administered Medications: 11/18 23:28 Drug: Pantoprazole IVP 40 mg Route: IVP; Site: left antecubital; jb4 11/19 01:06 Follow up: Response: No adverse reaction rv 11/18 23:49 Drug: NS 0.9% IV 500 ml Route: IV; Rate: 1 bolus; Site: right antecubital; rv 11/19 01:07 Follow up: IV Status: Completed infusion; IV Intake: 500ml rv Disposition Summary: 11/19/22 02:01 Transfer Ordered Transfer Location: [facility] bs3 Reason: Higher level of care bs3 Condition: Fair bs3 Problem: new bs3 Symptoms: have improved bs3 Accepting Physician: ICU(11/19/22 02:56) rv Diagnosis - Anemia, unspecified bs3 - GI Bleed/ Gastrointestinal hemorrhage, unspecified bs3 Discharge Instructions: - Discharge Summary Sheet rv1 Forms: - Medication Reconciliation Form bs3 - SBAR form rv1 Signatures: Dispatcher [employer] EDKenneth Agustin RN RN jb4 Rodri Colmenares RN RN rv Babak Huitron MD MD bs3 Corrections: (The following items were deleted from the chart) 00:17 06/11 23:12 Constitutional: This is a well developed, well nourished patient who is bs3 awake, alert, and in no acute distress. Head/Face: Normocephalic, atraumatic. Eyes: Pupils equal round and reactive to light, extra-ocular motions intact. Lids and lashes normal. ENT: mmm, no posterior phyarngeal erythema Neck: Trachea midline, no thyromegaly, no neck stiffness Chest/axilla: Normal chest wall appearance and motion. Nontender with no deformity. No lesions are appreciated. Cardiovascular: Regular rate and rhythm with a normal S1 and S2. symmetric pulses in upper extremities Respiratory: Lungs have equal breath sounds bilaterally, clear to auscultation, no respiratory distress Abdomen/GI: Soft, non-tender, no rebound or guarding Skin: Warm, dry with normal turgor. Normal color with no rashes, no lesions, and no evidence of cellulitis. MS/ Extremity: Pulses equal, no cyanosis. Neurovascular intact. Full, normal range of motion. Neuro: Awake and alert, GCS 15, oriented to person, place, time, and situation. Cranial nerves II-XII grossly intact. Motor strength 5/5 in all extremities. Sensory grossly intact. Psych: Awake, alert, with orientation to person, place and time. Behavior, mood, and affect are within normal limits. bs3 11/19 02:56 02:01 ICU bs3 rv
[2022-11-19 03:25] VITALS: O2SAT 98
[2022-11-19 03:26] VITALS: BP 89/38; TEMP 98.7
--- NOTE | 2022-11-19 12:02 | EKG ---
Test Date: 2022-11-18 Test Time: 23:32:06 Manager Of [employer]: CLYDE MEASUREMENT RESULTS: Intervals: Rate: 77 OH: 186 QRSD: 70 QT: 426 QTc: 482 [place]: P: 106 OH: 186 QRS: 2 T: 58 INTERPRETIVE STATEMENTS: Normal sinus rhythm Prolonged QT Abnormal ECG No previous ECG available for comparison Electronically Signed On 11-19-22 12:00:22 CDT by Gabe Lora
== END 2022-11-19 02:56 | disposition short-term general hospital (02) ==
LOC: ER 23:03
DX: D64.9 Anemia, unspecified (principal); I10 Essential (primary) hypertension; Z85.46 Personal history of malignant neoplasm of prostate; Z85.72 Personal history of non-Hodgkin lymphomas
CPT/HCPCS: 96361; 93005; 85025; 36415; 86900; 86850; 85610; 86901; 83605; 86920 ×2; 80053; 36430; 96374; 99285; C9113; P9016 ×2; J7050 ×2